=== PATIENT | male | born 1970 | race Caucasian/White ===

== ENCOUNTER 2022-11-01 07:29 | Outpatient (CLI) | payer OTHER, SELFPAY ==
--- NOTE | ~2022-11-01 | MR_ITS ---
EXAMINATION: MR elbow RT wo con DATE: 11/01/2022 08:25 INDICATION: Tear of right biceps muscle. Right elbow pain. TECHNIQUE: Magnetic resonance imaging (MRI) of the right elbow was performed without intravenous cont rast. COMPARISON: None FINDINGS: Osseous/other: Bone alignment is normal. No fracture. The elbow joint cartilage is normal. Tendons: Brachialis tendon is normal. There is tendinopathy and partial tear of distal biceps tendon with lian cent fluid. There is mild tendinopathy of the common flexor tendon. There is tendinopathy and partial tear of the common extensor tendon. Ligaments: Radial collateral ligament and lateral ulnar collateral ligament are normal. Ulnar collateral ligamen t is normal. Cubital tunnel: The ulnar nerve is normal. Fluid: There is no elbow joint effusion. IMPRESSION: 1. Partial tear of distal biceps tendon. 2. Partial tear of the common extensor tendon at lateral humeral epicondyle. Reviewed, dictated and finalized at location A.
== END 2022-11-01 07:30 ==
PROVIDERS: PCP Family Medicine Sports Medicine; Visit Provider Family Medicine Sports Medicine
DX: S46.211D Strain of muscle, fascia and tendon of other parts of biceps, right arm, subsequent encounter (principal); T14.90XD Injury, unspecified, subsequent encounter
CPT/HCPCS: 73221

== ENCOUNTER 2024-07-30 10:02 | Inpatient (IN) | payer OTHER, SELFPAY ==
[2024-07-30] VITALS (17 sets, daily range): BP systolic 104–169; BP diastolic 69–101; PULSE 68–108; RESP 15–24; TEMP 36.6–37.2; O2SAT 94–98; BMI 20.8
--- NOTE | ~2024-07-30 | CT_ITS ---
EXAMINATION: CT brain wo con DATE: 07/30/2024 12:06 INDICATION: Seizure TECHNIQUE: Computed tomography (CT) of the head was performed without intravenous contrast. Sagittal and coronal reconstructions were performed. The mA was adjusted according to patient size. Iterative reconstruction technique was employed. The dose-length product was 681.00 mGy-cm. COMPARISON: None FINDINGS: No acute intracranial hemorrhage, acute infarction or abnormal extra axial fluid collection. Ventricl es are normal and symmetric. No mass/mass effect. The orbits, paranasal sinuses and mastoid air cells are normal. IMPRESSION: 1. Normal head CT. Reviewed, dictated and finalized at location A. IMPRESSION: 1. Normal head CT.
--- NOTE | ~2024-07-30 | US_ITS ---
EXAMINATION: US abdomen limited DATE: 07/30/2024 12:23 INDICATION: Elevated liver enzymes. TECHNIQUE: Multiple grayscale and Doppler ultrasound images of the abdomen were obtained. COMPARISON: None FINDINGS: The region of the pancreas is obscured by gas in the stomach and bowels. Liver has normal contour, wi th a smooth surface. There is increased parenchymal echogenicity and coarsened echotexture consistent with diffuse hepatic steatosis. No liver lesion identified. No intrahepatic biliary duct dilation s uspected. Portal venous flow was seen in the hepatopetal, normal direction and has normal Doppler wav eform. The gallbladder is normal in appearance. There is no cholelithiasis. The common bile duct jayde sures 2-3 mm, which is normal. Sonographic Bright sign was reported as negative by the flight crew scheduler.Th e proximal inferior vena cava is normal. Visualized portion of the right kidney demonstrates normal c ontour and echogenicity with no hydronephrosis. IMPRESSION: 1. Diffuse hepatic steatosis. 2. Normal gallbladder and no intra or extra hepatic biliary ductal dilation. Reviewed, dictated and finalized at location A.
--- OUTSIDE RECORDS SUMMARY | 2024-07-30 10:05 | XMS_ITS | Encounter Summary ---
Author Organization [facility] Address [address] [place] [address] Care Team Providers Care General Doc Name Role Phone Chery Valenzuela MD Primary Care Provider [phone] Encounter Details Date Type Department Care Team (Late st Contact Info) Description 07/27/2023 MyChart Message Enc [facility] Family and [facility] Medicine - [place] [address] [place] [address] Chery Valenzuela MD [address] [place] [address] Blood work Social History Tobacco Use Types Packs/Day Years Used Date Smoking Tobacco: Former Cigarettes 1 24 0 09/16/1984 - 09/16/2008 Passive Smoke Exposure: Never Smokeless Tobacco: Current Chew Alcohol Use Standard Drinks/Week Comments Never 0 (1 standard drink = 0.6 oz pur e alcohol) AUDIT-C Answer Date Recorded Frequency of Alcohol Consumption Never 06/06/2019 Average Number of Drinks Not on file 020 Frequency of Binge Drinking Not on file 05/28 PHQ-2 Answer Date Recorded Patient Health Questionnaire-2 Score 3 11/06/2022 Sex and Gender Information Value Date Recorded Sex Assigned at Male 05/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 Sex Male 11:55 AM ASSISTANT CONSTRUCTION SUPERINTENDENT Gender Identity Male 05/24/2024 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 Sexual Orientation Not on file documented as of this encounter Plan of Treatment Upcoming Encounters Date Type Department Care Team (Late st Contact Info) Description 08/03/2024 8:20 AM CDT Office Visit [facility] - [place] [address] [place] [address] Chery Valenzuela MD [address] [address] documented as of this encounter Visit Diagnoses Not on filedocumented in this encounter Additional Health Concerns Assessment Noted Time PHQ-9 Depression Total Score: 5 11/07/19 23 8:53 AM CDT documented as of this encounter Care Teams General Doc Relationship Specialty Start Date End Date Chery Valenzuela MD [address] [address] PCP - General FAMILY PRACTICE 05/25/19 documented as of this encounter
--- OUTSIDE RECORDS SUMMARY | 2024-07-30 10:05 | XMS_ITS | Data Portability ---
Author Organization [facility] Address [address] [place] [address] Assessment No assessment recorded. Plan of Treatment Reminders Order Date Submit Date Provider Last Modified By Organization Details Last Modified Time Details Appointments None recorded . Lab TSH, serum, reflex free T4 2018 019 [facility], [address] [place] [address], [address], [place], [address], 9 16:37:52 BMP, serum or plasma 2018 019 [facility], [address] [facility], [address], [place], [address], 9 16:37:53 Referral None recorded . Procedures None recorded . Surgeries None recorded . Imaging CT, abdomen + pelvis, w/ contrast [address] ([facility]), [address] [place] [address], [address], 9 15:54:54 CT, abdomen + pelvis, w/wo contrast 2018 019 [place] [id number] Not available 9 16:38:27 Medication Orders clonazep am 0.5 mg tablet 2018 019 INTERFACE [facility], [address] [facility], [place], [address], 9 16:42:09 clonazep am 0.5 mg tablet 2018 019 INTERFACE [facility], [address] [place] [address], [address], 9 16:35:18 clonazep am 0.5 mg tablet 2018 019 INTERFACE [facility], [address] [place] [address], [address], 9 16:45:57 diclofen ac 1 % topical gel 2017 018 [email or web address] Not available 9 15:44:01 clonazep am 0.5 mg tablet 2017 018 [email or web address] [facility], [address] [place] [address], [address], 8 16:20:47 Patient TargetsNo targets recorded. Patient Instructions Encounter Date Encounter Id Patient Instructions Last Modified By Organization Details Last Modified Time 08/25/2018 [id number] learning about anxiety disorders [email or web address] Not available 08/25/2018 16:35:15 Reason for Referral None Reported. Problems Name Problem SNOMED Code Status Onset Date Resolution Date Notes Provider Name and Address Organization Details Recorded Time Pain in toe 878654854 Active 2016 Steve Junior MD Attn: Justyn almazan,[address] [facility], [place], [address], [facility] 7 16:23:16 Cough 51985539 Active 2016 Steve Junior MD Attn: Justyn almazan,[address] [facility], [place], [address], [facility] 7 16:23:32 Ex-tobacc o user 798859821 Active 2016 5-6 yrs ago Steve Junior MD Attn: Justyn almazan,[address] [facility], [place], [address], [facility] [place] [place] 7 16:24:00 Screening for malignant neoplasm of prostate Active 2016 Steve Junior MD Attn: Accountron almazan,[address] [facility], [place], [address], [place] [facility] 7 16:24:19 Adult health examinati on Active 2016 Steve Junior MD Attn: Accountin g,[address] [facility], [place], [address], [place] [facility] 7 16:25:10 Active immunizat ion Active 2017 Steve Junior MD Attn: Accountin g,[address] [facility], [place], [address], [place] [facility] 8 13:55:18 Anxiety disorder 530997215 Active 2017 Steve Junior MD Attn: Accountin g,[address] [facility], [place], [address], [place] [facility] 8 15:44:22 Medicatio n monitorin g Active 2017 Steve Junior MD Attn: Accountin g,[address] [facility], [place], [address], [place] [facility] 8 15:49:15 Pain of left shoulder joint 534558815094 [address] Active 2017 Jamar Tristan PA-C Attn: Accountin g,[address] [facility], [place], [address], [place] [facility] 8 16:16:21 Low back pain 409150407 Active 2018 Radiates to left testicle Steve Junior MD Attn: Accountin g,[address] [facility], [place], [address], [place] [facility] 9 16:32:48 Left lower quadrant pain 208400177 Active 2018 Steve Junior MD Attn: Accountin g,[address] [facility], [place], [address], [place] [facility] 9 16:31:10 Abnormal weight loss 783350681 Active 2018 Steve Junior MD Attn: Justyn almazan,[address] [facility], [place], [address], [facility] [place] 9 16:32:16 Altered bowel function 68370541 Active 2018 Steve Junior MD Attn: Justyn almazan,[address] , [place], [address], [facility], [place] 9 16:32:50 Problem Notes None recorded. Medical Equipment None Reported. Allergies No known drug allergies Medications Name Sig Start Date Stop Date Status Note LastModified by Organization Details LastModified Time cetirizine 10 mg tablet Take 1 tablet every day by oral route. 03/05 completed Not Available Not Available Not Available clonazepam 0.5 mg tablet active Not Available Not Available Not Available ibuprofen 200 mg tablet Take 1 tablet every 6 hours by oral route as needed. 08/25 completed Not Available Not Available Not Available diclofenac 1 % topical gel APPLY 2 GRAM TO THE AFFECTED AREA(S) BY TOPICAL ROUTE 4 TIMES PER DAY 08/25 completed Not Available Not Available Not Available Vitals Date Recorded Body height Body mass index (BMI) Body weight Oxygen saturation Oxygen saturation in Arterial blood by Pulse oximetry Heart rate Body temperature Systolic blood pressure Diastolic blood pressure Provider Name and Address Organization Details Last Updated DateTime 8 177.8 cm 23.9 kg/m2 93482.2 1 g 97 % 97 % 77 /min 98.3 [degF] 140 mm[Hg] 78 mm[Hg] Yadira Rolle MA [facility] 8 16:04:46 Date Recorded Body height Body mass index (BMI) Body weight Body temperature Oxygen saturation Oxygen saturation in Arterial blood by Pulse oximetry Heart rate Systolic blood pressure Diastolic blood pressure Provider Name and Address Organization Details Last Updated DateTime 9 177.8 cm 23.4 kg/m2 53157.5 6 g 97.8 [degF] 98 % 98 % 76 /min 138 mm[Hg] 80 mm[Hg] Aurora Knowles MA [facility] 9 16:29:16 Date Recorded Body height Body mass index (BMI) Body weight Body temperature Oxygen saturation Oxygen saturation in Arterial blood by Pulse oximetry Heart rate Systolic blood pressure Diastolic blood pressure Provider Name and Address Organization Details Last Updated DateTime 9 177.8 cm 24.2 kg/m2 04021.3 9 g 98.3 [degF] 95 % 95 % 58 /min 122 mm[Hg] 80 mm[Hg] Shaina Davis [place] [facility] 9 15:52:09 Date Recorded Body height Body mass index (BMI) Body weight Body temperature Oxygen saturation Oxygen saturation in Arterial blood by Pulse oximetry Heart rate Systolic blood pressure Diastolic blood pressure Provider Name and Address Organization Details Last Updated DateTime 9 177.8 cm 22.2 kg/m2 92898.1 g 98.3 [degF] 98 % 98 % 47 /min 134 mm[Hg] 76 mm[Hg] Chano Holt [place] [facility] 9 15:20:12 Date Recorded Body height Body mass index (BMI) Body weight Body temperature Oxygen saturation Oxygen saturation in Arterial blood by Pulse oximetry Heart rate Systolic blood pressure Diastolic blood pressure Provider Name and Address Organization Details Last Updated DateTime 9 177.8 cm 22.8 kg/m2 99130.1 9 g 98.1 [degF] 98 % 98 % 73 /min 118 mm[Hg] 84 mm[Hg] Aurora Knowles [place] [facility] 9 15:27:26 Social History Question Answer Notes LastModified by Organization D etails LastModified Time How Many Years Have You Smoked Tobacco? 5 [email or web address] Information not available 06/15/2017 Sex: Unknown Functional Status None recorded. Mental Status None recorded. Family History Relationship Description Onset Age of this Age Resolved Age Notes LastModified by Organization Details LastModified Time Mother Congestive heart failure [email or web address] Not available 2016 15:47:59 Mother Alcohol abuse [email or web address] Not available 2016 15:55:31 Mother Asthma [email or web address] Not available 1 06/15/2016 15:55:41 Mother Depressive disorder [email or web address] Not available 2016 15:55:59 Mother Hypertensive disorder [email or web address] Not available 2016 15:56:24 Mother Myocardial infarction [email or web address] Not available 04/14 15:56:41 Mother Heart disease [email or web address] Not available 2016 15:56:57 Mother Migraine [email or web address] Not available 04/14/2017 15:57:12 Mother Osteoporosis [email or web address] Not avail able 04/14/2017 15:57:36 Sister Alcohol abuse [email or web address] Not available 2016 15:55:31 Sister Depressive disorder [email or web address] Not available 2016 15:55:59 Sister Hypertensive disorder [email or web address] Not available 2016 15:56:24 Brother Hypertensive disorder [email or web address] Not available 2016 15:56:24 Medical History Condition Response Anxiety Disorder Y Muscle, Joint, or Bone Problems Y High Blood Pressure Y Acid Reflux (GERD) Y Headaches Y Depression Y GI Problems Y Immunizations Vaccine Type Date Status Note Provider Nam e and Address Organization Details Recorded Time Tdap 05/07/2017 completed Not Available [facility] 05/14/2019 02:48:31 Past Encounters Encounter ID Performer Location Encounter Start Date Encounter Closed Date Diagnosis/Indication Diagnosis SNOMED-CT Code Diagnosis ICD10 Code Diagnosis Note [id number] MD Greg Hagen (Adult Med) [address] [place] [address] 04/14/2017 14:56:27 04/14/2017 16:32:51 Screening for malignant neoplasm of prostate 258490194 Z12.5 Adult heal th examination 869283371 Z00.00 Cough 55792942 R05 [id number] MD Greg Hagen (Adult Med) [address] [place] [address] 05/07/2017 11:55:29 05/07/2017 15:21:36 Adult health examination 607956405 Z00.00 Active immunization 3387 9002 Z23 [id number] MD Greg Hagen (Adult Med) [address] [place] [address] 06/15/2017 14:40:14 06/15/2017 15:55:20 Anxiety disorder 330760096 F41.9 Medication monitoring 39 9236476 Z51.81 Cough 81558203 R05 post nasal drip [id number] MD Greg Hagen (Adult Med) [address] [place] [address] 0 10/19/2017 15:52:55 10/20/2017 12:11:00 Anxiety disorder 522588289 F41.9 Ex-tobacco user 24563389 9 Z87.539 [id number] IMTIAZ Pickens (Adult Med) [address] [place] [address] 0 03/05/2018 15:39:43 03/05/2018 16:26:01 Pain of left shoulder joint 4060698482 4256385 M25.512 Anxiety disorder F41.9 [id number] MD Greg Hagen (Adult Med) [address] [place] [address] 0 05/04/2018 15:42:47 05/05/2018 10:01:45 Pain of left shoulder joint 2031342871 1577810 M25.512 Anxiety disorder F41.9 Ex-tobacco user 23013106 9 Z87.510 [id number] MD Greg Hagen (Adult Med) [address] [place] [address] 0 08/25/2018 15:12:48 08/26/2018 10:18:47 Anxiety disorder 550342808 F41.9 [id number] MD Greg Hagen (Adult Med) [address] [place] [address] 0 10/25/2018 14:53:28 10/26/2018 10:12:56 Left lower quadrant pain 864925490 R10.32 Abnormal weight loss 267 787274 R63.4 Altered rosio wel function 95245813 R19.4 Anxiety disorder F41.9 [id number] MD Greg Hagen (Adult Med) [address] [place] [address] 0 12/30/2018 14:46:45 12/31/2018 12:56:56 Abnormal weight loss 205146347 R63.4 Left lower quadrant pain 155941719 R10.32 Health Concerns Section Related Observation LastModified by Organization Detai ls LastModified Time None Recorded Concern Status LastModified by Organization Details LastModified Time None Recorded Advance Directives Directive None Recorded Payers Encounter Date Sequence Insurance Name Policy Number Policy Espinosa Covered Member ID Espinosa Member ID Guarantor Name 03/05/2018 1 *SELF PAY* Ma tthew Blanke 08/25/2018 1 *SELF PAY* Ma tthew Blanke 10/25/2018 1 *SELF PAY* Ma tthew Blanke 12/30/2018 1 *SELF PAY* Ma tthew Blanke Notes Date Note Type Note Provider Name and Address Organization Details Recorded Time 03/05/2018 text/html left shoulder pain , stiffness , no better Jamar Tristan PA-C Attn: [facility],[address] [facility], [place], [address], [facility] 03/07/2018 15:15:39 05/04/2018 text/html Needs clearance to enter [employer]. No new complaints. Steve Junior MD Attn: [facility],[address] [place], [address], [facility] 05/04/2018 16:46:01 08/25/2018 text/html Occasional pain lower back with radiation to left testicle. Pain usually lasts three days. Had seen psysical theraist Steve Junior MD Attn: [facility],[address] [facility], [place], [address], [facility] 08/25/2018 16:36:41 10/25/2018 text/html LLQ abdominal pain x 6 months but worse in the past six weeks. No obvious triggers. Intense pain is primarily at night and lasts a couple hours. Pain apparently present about 30 mins poat dinner. Has episodes of nausea at least weekly but no emesis. last episode one week ago. No obvious preeceding contributions. Has Has been off ibuprofen for at least four months. Appetite poor since last visit. Steve Junior MD Attn: [facility],[address] [place], [address], [facility] 10/25/2018 16:42:33 12/30/2018 text/html Was unable to ge t CT done. Will schedule again. Steve Junior MD Attn: [facility],[address] [place], [address], [facility] 12/30/2018 15:56:44
--- OUTSIDE RECORDS SUMMARY | 2024-07-30 10:05 | XMS_ITS | Continuity of Care Document ---
Author Organization [facility] [facility] Address [address] [place] [address] [address] [place] [address] Phone Care Team Providers Care Supervisor Cell Operation Name Role Phone Agapito Bennett Unavailable Unavailable Procedures Procedure Date Therapeutic Activities Therapeutic Exercise Manual Therapy Neuromuscular Re-Ed Therapeutic Activities Neuromuscular Re-Ed Manual Therapy Therapeutic Exercise Therapeutic Activities Neuromuscular Re-Ed Therapeutic Exercise Manual Therapy Neuromuscular Re-Ed Therapeutic Exercise Therapeutic Activities Manual Therapy Therapeutic Activities Neuromuscular Re-Ed Therapeutic Exercise Manual Therapy Therapeutic Activities Neuromuscular Re-Ed Manual Therapy Therapeutic Exercise Neuromuscular Re-Ed Therapeutic Activities Therapeutic Exercise Manual Therapy Therapeutic Activities Neuromuscular Re-Ed Therapeutic Exercise Manual Therapy Neuromuscular Re-Ed PT Evaluation Moderate Complexity Manual Therapy Therapeutic Exercise Advance Directives Directive Yes / No Effective Date File Name No Information Encounters Encounter Description Practice Location Reason(s) For Visit Diagnoses Date Provider Providers Copied on Encounter [facility] [address] [place] [address], [id number], tel:[phone] [place] No Information Dec-0 7-202 0 Muehl Agapito. [address] [facility], [address], [place], [facility], . tel: [phone] [address], [id number], tel:[phone] [place] No Information 3 0-202 0 Muehl Agapito. [address] [place] [address], [facility], [place], [place], [facility], . tel: [phone] Referring Provider: [place], [address]. tel: [address], [id number], tel:[phone] [place] No Information 3-202 0 Muehl Agapito. [address] [place] [address], [address], [place], [place], [facility], . tel: [phone] Referring Provider: Radha Dinero, [place], [address]. tel: [address], [id number], tel:[phone] [place] No Information 2 0-202 0 Muehl Agapito. [address] [facility], [address], [place], [facility], . tel: [phone] Referring Provider: Radha Dinero, [place], [address]. tel: [address], [id number], tel:[phone] [place] No Information Nov-1 1-202 0 Muehl Agapito. [address] [place] [address], [address], [place], [address], [place]. tel: [phone] Referring Provider: [place], [address]. tel:[phone], [id number], [place] tel:[phone] [place] No Information 0 9-202 0 Muehl Agapito. [address] [place] [address], [address], [place], [address], [place]. tel: [phone] Referring Provider: [place], [address]. tel:[phone], [id number], [place] tel:[phone] [place] No Information 0 4-202 0 Muehl Agapito. [address] [place] [address], [address], [place], [address], [place]. tel: [phone] Referring Provider: Radha Dinero, [place], [address]. tel:[phone], [id number], [place] tel:[phone] [place] No Information 8-202 0 Muehl Agapito. [address] [place] [address], [address], [place], [address], [place]. tel: [phone] Referring Provider: [place], [address]. tel: [address], [place], [place], [id number], [place] tel:[phone] [place] No Information 2 6-202 0 Muehl Agapito. [address] [place] [address], [address], [place], [address], . tel:[phone] Referring Provider: Chery Valenzuela, [place], [address]. tel:[phone] [facility] [place], [address], [id number], [place] tel:[phone] [place] No Information 0 Buck Altman. [address] [facility], [facility] [address], [address], . tel:[phone] Referring Provider: Radha Dinero, [place], [address]. tel:[phone] Family History Family Member Type Diagnosis Age At Onset No Information Payers Payer name Insurance type Covered republican ID Eboni schmidt(s) Deseantna [id number] Social History Type Description Quantity Date Captured Comments Sex Male Smoking Status No Information Chief Complaint And Reason For Visit No Information Reason For Referral Reason For Referral No Information History Of Present Illness Encounter Date Complaint History Of Prese nt Illness No Information Functional Status Date Functional Assessmen t No Information Instructions Date Instruction Additional Infor mation No Information Assessments Type Assessment Date No Information Patient Care Teams Name Effective Dates (start - stop) Status Members No Information
--- OUTSIDE RECORDS SUMMARY | 2024-07-30 10:05 | XMS_ITS | Clinical Summary ---
Author Organization [facility] Address [facility] [place] [address] Care Team Providers Care Blind Aide Name Role Phone Chery Valenzuela MD Primary Care Provider [phone] Allergies Active Allergy Reactions Criticality Noted Date Comments Erythromycin GI Upset 05/19/2020 Medications Micheline, Zingiber officinalis, (MICHELINE ROOT OR) 01/26/20 18 Active Cholecalciferol 100 MCG (4000 UT) Cap 12/27/19 15 Active fish oil 1000 MG Cap capsule 12/27/19 15 Active mirtazapine (REMERON) 30 MG tabletIndications :Primary insomnia Take 1 tablet (30 mg total) by mouth nightly at bedtime. 90 tablet 3 10/22/19 24 Active escitalopram (LEXAPRO) 20 MG tabletIndications :Mixed anxiety depressive disorder Take 1 tablet (20 mg total) by mouth daily. 90 tablet 3 10/22/19 24 Active busPIRone (BUSPAR) 10 MG tabletIndications :Anxiety Take 1 tablet (10 mg total) by mouth 2 (two) times daily. 180 tablet 3 10/22/19 24 Active testosterone cypionate (DEPO TESTOSTERONE) 200 MG/ML injectionIndicati ons:Testosterone deficiency Inject 1 mL (200 mg total) into the muscle every 14 (fourteen) days. For 14 Days 6 mL 3 04/25/20 24 025 Active clonazePAM (KLONOPIN) 1 MG tabletIndications :Anxiety Take 1 tablet (1 mg total) by mouth 3 (three) times daily as needed for Anxiety. 90 tablet 07/09/19 25 Active lisdexamfetamine (VYVANSE) 20 MG capsuleIndication s:Attention or concentration deficit Take 1 capsule (20 mg total) by mouth every morning. 30 capsule 07/12/19 25 Active traZODone (DESYREL) 100 MG tabletIndications :Primary insomnia TAKE 1-2 TABLETS (100-200 MG TOTAL) BY MOUTH NIGHTLY AT BEDTIME. 180 tablet 1 07/14/19 25 026 Active lisdexamfetamine (VYVANSE) 40 MG capsuleIndication s:Attention deficit hyperactivity disorder (ADHD), predominantly inattentive type Take 1 capsule (40 mg total) by mouth every morning. 30 capsule 07/27/19 25 Active traZODone (DESYREL) 100 MG tabletIndications :Primary insomnia Take 1-2 tablets (100-200 mg total) by mouth nightly at bedtime. 180 tablet 1 01/20/20 24 025 Discontinued clonazePAM (KLONOPIN) 1 MG tabletIndications :Anxiety Take 1 tablet (1 mg total) by mouth 3 (three) times daily as needed for Anxiety. 90 tablet 06/09/19 25 025 Discontinued(Re order) lisdexamfetamine (VYVANSE) 20 MG capsuleIndication s:Attention or concentration deficit Take 1 capsule (20 mg total) by mouth every morning. 30 capsule 07/12/19 25 025 Discontinued(Re order) lisdexamfetamine (VYVANSE) 20 MG capsuleIndication s:Attention or concentration deficit Take 1 capsule (20 mg total) by mouth every morning. 30 capsule 07/12/19 25 025 Discontinued Active Problems Problem Noted Date Diagnosed Date Traumatic partial tear of right biceps tendon Primary insomnia 12/07/2020 ADD (attention deficit disorder) 08/23/2019 Hypothyroidism 08/23/2019 PTSD (post-traumatic stress disorder) 08/23/2019 Pain of both elbows 06/06/2019 Resolved Problems Problem Noted Date Diagnosed Date Resolved Date Injury of left elbow 12/22/2019 023 Forearm pain 12/22/2019 10/29/2022 Anxiety 08/23/2019 10/22/2023 Depression 08/23/2019 10/29/2022 Annual physical exam 06/06/2019 021 Left lower quadrant abdominal pain 06/06/2019 05/05/2022 Recurrent major depressive d isorder, in remission 06/06/2019 10/22/2023 Encounters Date Type Department Care Team Description 07/13/[address] [facility] [address] [place] [phone] Chery Valenzuela MD Refill Request 07/13/[address] [facility] [address] [place] [phone] Chery Valenzuela MD Request for Lisdexamfetamine Increase 07/11/2024 8:00 AM CDT Office Visit [facility] [address] [place] [phone] Chery Valenzuela MD Follow Up 07/11/[address] [facility] [address] [place] [phone] Chery Valenzuela MD Medication 07/11/2024 Travel 06/13/2024 8:00 AM MAIL PROCESSING EQUIPMENT MECHANIC Office Visit [facility] [address] [place] [phone] Chery Valenzuela MD Follow Up (Laceration to left wrist on 06/03. Sutures placed at [facility]. One spot is still draining. ) 06/13/2024 Travel 06/03/2024 12:29 PM MAIL PROCESSING EQUIPMENT MECHANIC - 06/03/2024 2:22 PM MAIL PROCESSING EQUIPMENT MECHANIC Emergency [facility] [place] [address] Krishna Mendoza MD Laceration Discharge Disposition: Home or Self Care (Routine Discharge) 06/03/2024 Travel 05/24/2024 8:00 AM MAIL PROCESSING EQUIPMENT MECHANIC Office Visit [facility] [address] [place] [address] Chery Valenzuela MD Physical (Annual physical) 05/24/2024 Travel from Last 3 Months Immunizations Name Administration Dates Next Due MODERNA COVID-19 (12+) MRNA, LNP-S, PF, 100 MCG/ 0.5 ML DOSE 02/19/2021,01/22/2021 Tdap (Generic) 05/07/2017 Family History Medical History Relation Comments Depression Brother Hypertension Brother Mental Health Brother Arthritis Father COPD Father Depression Father Heart Disease Father Mental Health Father Depression Maternal Aunt Mental Health Maternal Aunt Arthritis Maternal Grandmother Cancer Maternal Grandmother Mental Health Maternal Grandmother Alcohol Abuse Mother Arthritis Mother Asthma Mother COPD Mother Depression Mother Diabetes Mother Drug Abuse Mother Heart Disease Mother Hypertension Mother Mental Health Mother Miscarriages / Stillbirths Mother Depression Paternal Grandfather Early Hearing Loss Paternal Grandfather Mental Health Paternal Grandfather Arthritis Sister Depression Sister Diabetes Sister Mental Health Sister Early Son 1 Mental Health Son 1 Mental Health Son 2 Relation Status Comments Brother Father Maternal Aunt Maternal Grandmother Mother Paternal Grandfather Sister Son 1 Son 2 Social History Tobacco Use Types Packs/Day Years Used Date Smoking Tobacco: Former Cigarettes 1 24 0 09/16/1984 - 09/16/2008 Passive Smoke Exposure: Never Smokeless Tobacco: Current Chew Tobacco Cessation:Ready to Q uit: No; Counseling Given: Yes Alcohol Use Standard Drinks/Week Comments Never 0 (1 standard drink = 0.6 oz pur e alcohol) AUDIT-C Answer Date Recorded Frequency of Alcohol Consumption Never 06/06/2019 Average Number of Drinks Not on file 020 Frequency of Binge Drinking Not on file 05/28 PHQ-2 Answer Date Recorded Patient Health Questionnaire-2 Score 0 05/24/2024 Sex and Gender Information Value Date Recorded Sex Assigned at Male 05/24/2024 8:12 AM MAIL PROCESSING EQUIPMENT MECHANIC Legal Sex Male 11:55 AM MAIL PROCESSING EQUIPMENT MECHANIC Gender Identity Male 05/24/2024 8:12 AM MAIL PROCESSING EQUIPMENT MECHANIC Sexual Orientation Not on file Last Filed Vital Signs Vital Sign Reading Time Taken Comments Blood Pressure 134/80 07/11/2024 8:16 AM CDT Pulse 76 07/11/2024 8:16 AM CDT Temperature 36.7 C (98.1 F) 07/11/2024 8:16 AM CDT Respiratory Rate 16 07/11/2024 8:16 AM CDT Oxygen Saturation 100% 07/11/2024 8:16 AM CDT Inhaled Oxygen Concentration - - Weight 73 kg (161 lb) 07/11/2024 8:16 AM CDT Height 177.8 cm (5' 10 ) 07/11/2024 8:16 AM CDT Body Mass Index 23.1 07/11/2024 8:16 AM CDT Plan of Treatment Upcoming Encounters Date Type Department Care Team (Late st Contact Info) Description 08/03/2024 8:20 AM CDT Office Visit [facility] - [place] [address] [place] [address] Chery Valenzuela MD [address] [place] [address] Health Maintenance Due Date Last Done Comments Hepatitis B Vaccines (1 of 3 - 19+ 3-dose series) 1990 Annual Physical 05/24/2025 05/24/2024, 07/0 08/2022, 10/22/2021, Additional history exists COVID-19 Vaccine ( - 2023- season) 2025 02/19/2021, 01/22/2021 Postponed from 12/27/2023 (Patient Refused) Zoster Vaccines (1 of 2) 05/24/2025 Pos tponed from 2021 (Going to Outside Clinic) DTaP, Tdap and Td Vaccines (2 - Td or Tdap) 05/07/2027 05/07/2017 Colorectal Cancer Screening Colonoscopy (10 Years) 08/31/2029 09/01/2019 Hepatitis C Completed 05/26/2023 PHQ-2 (Physician [place]) Completed 05/24/2024 Meningococcal B Vaccine Aged Out No l onger eligible based on patient's age to complete this topic Meningococcal Vaccine Aged Out No juan josé arline eligible based on patient's age to complete this topic Pneumococcal Vaccine: Pediatrics (0 to 5 Years) and At-Risk Patients (6 to 64 Years) Aged Out No longer eligible based on patient's age to complete this topic RSV Immunizations Under 20 Months Aged Out No longer eligible based on patient's age to complete this topic Procedures Procedure Name Priority Date/Time Associated Diagnosis Comments SUTURE REMOVAL Routine 06/13/2024 8:00 AM MAIL PROCESSING EQUIPMENT MECHANIC Suture check Laceration of left wrist, subsequent encounter LACERATION REPAIR Routine 06/03/2024 2:0 4 PM MAIL PROCESSING EQUIPMENT MECHANIC HEPATITIS C ANTIBODY Routine 05/26/2023 9:54 AM MAIL PROCESSING EQUIPMENT MECHANIC Traumatic partial tear of right biceps tendon, subsequent encounter from Last 3 Months or Most Recently Relevant to Health Maintenance Results * SUTURE REMOVAL (06/13/2024 8:00 AM MAIL PROCESSING EQUIPMENT MECHANIC) Narrative Chery Valenzuela MD - 06/13/2024 8:00 AM MAIL PROCESSING EQUIPMENT MECHANIC Chery Valenzuela MD 06/13/2024 11:05 AM Suture Removal Date/Time: 06/13/2024 8:00 AM Performed by: Chery Valenzuela MD Authorized by: Chery Valenzuela MD Body area: upper extremity Location details: left wrist Wound Appearance: clean Sutures Removed: 10 Post-removal: Steri-Strips applied Patient tolerance: patient tolerated the procedure well with no immediate complications us Chery Valenzuela MD PROCEDURE/MINOR SURGICAL ORDER ISAAC Final Result * Lac Repair (06/03/2024 2:04 PM MAIL PROCESSING EQUIPMENT MECHANIC) Narrative Krishna Mendoza MD - 06/03/2024 2:04 PM MAIL PROCESSING EQUIPMENT MECHANIC IVIS Rouse 06/03/2024 2:06 PM Lac Repair Date/Time: 06/03/2024 2:04 PM Performed by: IVIS Rouse Authorized by: Krishna Mendoza MD Consent: Consent obtained: Verbal Consent given by: Patient Risks discussed: Infection and pain Anesthesia: Anesthesia method: Local infiltration Local anesthetic: Lidocaine 1% w/o epi Laceration details: Location: Shoulder/arm Shoulder/arm location: L lower arm Length (cm): 6 Exploration: Wound extent: no tendon damage noted, no underlying fracture noted and no vascular damage noted Treatment: Area cleansed with: [place] Amount of cleaning: Standard Skin repair: Repair method: Sutures Suture size: 4-0 Suture material: Nylon Suture technique: Simple interrupted Number of sutures: 10 Approximation: Approximation: Close Repair type: Repair type: Simple Post-procedure details: Dressing: Adhesive bandage Procedure completion: Tolerated us Krishna Mendoza MD PROCEDURE/MINOR SURGICAL ORDER ISAAC Final Result * HEPATITIS C ANTIBODY (05/26/2023 9:54 AM MAIL PROCESSING EQUIPMENT MECHANIC) HEPATITIS C AB NON-REACTI VE NON-REACT LEAH 05/26/2023 6:54 PM MAIL PROCESSING EQUIPMENT MECHANIC [facility] Comment: ANTIBODIES TO HCV NOT DETECTED. DOES NOT EXCLUDE THE POSSIBILITY OF EXPOSURE TO HCV. 05/26/2023 9:54 AM MAIL PROCESSING EQUIPMENT MECHANIC Chery Valenzuela MD LABORATORY Final Result [facility] [address] [place] [address], [id number] from Last 3 Months or Most Recently Relevant to Health Maintenance Insurance [employer] Care Teams Blind Aide Relationship Specialty Start Date End Date Chery Valenzuela MD [address] [place] [address] [phone] PCP - General FAMILY PRACTICE 05/25/19
--- OUTSIDE RECORDS SUMMARY | 2024-07-30 10:06 | XMS_ITS | Encounter Summary ---
Author Organization [facility] Address [address] [place] [address] Care Team Providers Care Flake Drier Name Role Phone Chery Valenzuela MD Primary Care Provider + Encounter Details Date Type Department Care Team (Late st Contact Info) Description 09/06/2019 MyChart Message Enc [facility] Family and Sports Medicine - [place] [address] [place] [address] Chery Valenzuela MD [address] [place] [address] Follow Up/Update Social History Tobacco Use Types Packs/Day Years Used Date Smoking Tobacco: Former Smokeless Tobacco: Current Chew Alcohol Use Standard Drinks/Week Comments Never 0 (1 standard drink = 0.6 oz pur e alcohol) AUDIT-C Answer Date Recorded Frequency of Alcohol Consumption Never 06/06/2019 Average Number of Drinks Not on file 020 Frequency of Binge Drinking Not on file 05/28 Sex and Gender Information Value Date Recorded Sex Assigned at Male 05/24/2024 8:12 AM BACK TENDER CLOTH PRINTING Legal Sex Male 11:55 AM BACK TENDER CLOTH PRINTING Gender Identity Male 05/24/2024 8:12 AM BACK TENDER [employer]OTH PRINTING Sexual Orientation Not on file COVID-19 Exposure Response Date Recorded In the last month, have you been in contact with someone who was confirmed or suspected to have Coronavirus / COVID-19? No / Unsure 08/31/2019 1:31 PM CDT documented as of this encounter Plan of Treatment Upcoming Encounters Date Type Department Care Team (Late st Contact Info) Description 08/03/2024 8:20 AM CDT Office Visit [facility] Family and Sports Medicine - [place] [address] [place] [address] Chery Valenzuela MD [address] [address] documented as of this encounter Visit Diagnoses Not on filedocumented in this encounter Care Teams Flake Drier Relationship Specialty Start Date End Date Chery Valenzuela MD [address] [address] PCP - General FAMILY PRACTICE 05/25/19 documented as of this encounter
--- NOTE | 2024-07-30 10:16 | ECG_ITS ---
Test Date: 2024-07-30 10:45:19 Measurements Intervals [place] Rate: 98 P: 66 MD: 120 QRS: 63 QRSD: 110 T: 47 QT: 371 QTc: 475 Interpretive Statements SINUS RHYTHM POSSIBLE LEFT ATRIAL ENLARGEMENT CANNOT R/O SEPTAL INFARCT, AGE INDETERMINATE ABNORMAL ECG No previous ECG available for comparison Electronically Signed On 07-30-2024 14:47:17 CDT by Viktor Hirsch D.O.
[2024-07-30] MEDS: LORazepam INJ (*CRX) 2 MG/ML VIAL IV PUSH ×2 (10:25→20:32)
--- OUTSIDE RECORDS SUMMARY | 2024-07-30 10:33 | XMS_ITS | Continuity of Care Document ---
Author Organization [facility] Address [address] [place] [address] [address] [place] [address] Phone Care Team Providers Care Aircraft Systems Technician Name Role Phone Agapito Bennett Unavailable Unavailable Procedures Procedure Date Therapeutic Activities Neuromuscular Re-Ed Manual Therapy Therapeutic Exercise Therapeutic Activities Neuromuscular Re-Ed Manual Therapy Therapeutic Exercise Therapeutic Activities Therapeutic Exercise Neuromuscular Re-Ed Manual Therapy Therapeutic Activities Neuromuscular Re-Ed Therapeutic Exercise Manual Therapy Therapeutic Exercise Neuromuscular Re-Ed Therapeutic Activities Manual Therapy Therapeutic Activities Neuromuscular Re-Ed Manual Therapy Therapeutic Exercise Neuromuscular Re-Ed Therapeutic Activities Manual Therapy Therapeutic Exercise Therapeutic Activities Neuromuscular Re-Ed Therapeutic Exercise Manual Therapy PT Evaluation Moderate Complexity Neuromuscular Re-Ed Manual Therapy Therapeutic Exercise Advance Directives Directive Yes / No Effective Date File Name No Information Encounters Encounter Description Practice Location Reason(s) For Visit Diagnoses Date Provider Providers Copied on Encounter [facility] [address] [place] [address], [id number], tel:[phone] [place] No Information Dec-0 7-202 [address] [address] [facility], [address], [place], [facility] [place][note 2], . tel: [phone] [address], [id number], tel:[phone] [place] No Information 3 0-202 0 Muehl Agapito. [address] [place] [address], [facility], [place], [place], [facility] [place][note 2], . tel: [phone] Referring Provider: [place], [address]. tel: [address], [id number], tel:[phone] [place] No Information 3-202 0 Muehl Agapito. [address] [place] [address], [address], [place], [place], [facility] [place][note 2], . tel: [phone] Referring Provider: Radha Dinero, [place], [address]. tel: [address], [id number], tel:[phone] [place] No Information 2 0-[address] [address] [facility], [address], [place], [facility] [place][note 2], . tel: [phone] Referring Provider: Radha Dinero, [place], [address]. tel: [address], [id number], tel:[phone] [place] No Information Nov-1 1-202 0 Muehl Agapito. [address] [place] [address], [address], [place], [address], [place]. tel: [phone] Referring Provider: [place], [address]. tel:[phone], [id number], [place] tel:[phone] [place] No Information 0 9-202 0 Muehl Agapito. [address] [place] [address], [address], [place], [address], [place]. tel: [phone] Referring Provider: [place], [address]. tel:[phone], [id number], [place] tel:[phone] [place] No Information 0 4-202 0 Muehl Agapito. [address] [place] [address], [address], [place], [address], [place]. tel: [phone] Referring Provider: Radha Dinero, [place], [address]. tel:[phone], [id number], [place] tel:[phone] [place] No Information 8-202 0 Muehl Agapito. [address] [place] [address], [address], [place], [address], [place]. tel: [phone] Referring Provider: [place], [address]. tel: [address], [place], [place], [id number], [place] tel:[phone] [place] No Information 2 6-202 0 Muehl Agapito. [address] [place] [address], [address], [place], [address], . tel:[phone] Referring Provider: Chery Valenzuela, [place], [address]. tel:[phone] [facility] [place], [address], [id number], [place] tel:[phone] [place] No Information [address] [address] [facility], [facility] [address], [place], [address], . tel:[phone] Referring Provider: Radha Dinero, [place], [address]. tel:[phone] Family History Family Member Type Diagnosis Age At Onset No Information Payers Payer name Insurance type Covered constitution party ID Eboni schmidt(s) Dese[place]na [id number] Social History Type Description Quantity Date Captured [...]
[2024-07-30] MEDS: PANTOPRAZOLE SODIUM IV 40 MG VIAL IV PUSH ×2 (10:35→20:26)
[2024-07-30] MEDS: SODIUM CHLORIDE 0.9% IV 1,000 ML 999 ML IV CONT (10:40)
--- NOTE | 2024-07-30 10:40 | PC.NURSE ---
Seizure pads applied to bed rails.
--- NOTE | 2024-07-30 10:40 | PC.NURSE ---
Pt. had a witnessed seizure, lasting for appriximately 1 minute. This RN and Donna RN at bedside. Pt. immediately turned to right side, mouth suctioned, 2L NC applied and Donna RN called out for additional help while this RN held pt. to R. side. Once additional help arrived, IV access obtained. See MAR for pharmacological intervention. Pt. bit the L. side of his tongue. Minor bleeding. Pt. showing no signs of aspiration. Pt. is now awake, does not remember event but is A&Ox3.
[2024-07-30] MEDS: ONDANSETRON INJ 4 MG/2 ML VIAL IV PUSH (10:45)
[2024-07-30 10:55] LABS: Basophils Absolute Auto 0.1 K/mm3 (0.0-0.1); Basophils Percent Auto 0.3 % (0.2-1.2); Eosinophils Percent Auto 0.1 % (0-4.4); Hemoglobin 18.4 g/dL (14.0-18.0); Immature Granulocyte Absolute 0.16 K/mm3 (0.00-0.031); Immature Granulocyte Percent A 0.7 % (0-0.5); Lymphocytes Absolute Auto 3.18 K/mm3 (0.9-3.2); Lymphocytes Percent Auto 13.3 % (18.3-44.2); Mean Corpuscular HGB Conc 34.1 g/dl (32-36); Mean Corpuscular Hemoglobin 33.4 pg (26-34); Mean Platelet Volume 10.4 fl (7.4-10.4); Monocytes Absolute Auto 1.4 K/mm3 (0.1-0.6); Monocytes Percent Auto 5.7 % (2.6-8.5); Neutrophils Absolute Auto 19.1 K/mm3 (1.3-6.7); Neutrophils Percent Auto 79.9 % (45.5-73.1); Platelet Count Result 266 k/mm3 (150-375); Red Blood Count 5.51 M/mm3 (4.6-6.20); Red Cell Distribution Width 13.6 % (11.5-14.5); White Blood Count 23.8 K/mm3 (4.5-10.0)
--- NOTE | 2024-07-30 11:00 | PC.NURSE ---
Pt. visitor in , Aunleonardo Al. Pt. states that he would not like his visitor to be given information and would only like for her to be told that he is ok. Pt. updated with this information. Aunt Servando left and can he reached at [phone].
[2024-07-30 11:05] LABS: INR 1.2; Prothrombin Time 15.8 Seconds (11.1-14.7)
[2024-07-30 11:18] LABS: Ethanol < 10 mg/dL (<10)
[2024-07-30 11:22] LABS: Albumin Level 5.7 g/dL (3.5-5.1); Alkaline Phosphatase 68 U/L (38-126); Aspartate Amino Transferase 68 U/L (17-59); Bilirubin,Total 1.4 mg/dL (0.2-1.3); Blood Urea Nitrogen 9 mg/dL (9-20); Calcium 9.9 mg/dL (8.4-10.2); Carbon Dioxide < 5 mmol/L (22-30); Chloride 100 mmol/L (98-107); Estimated Glomerular Filt Rate > 60; Glucose 160 mg/dL (65-110); Potassium 3.3 mmol/L (3.4-5.0); Sodium 143 mmol/L (137-145)
--- NOTE | 2024-07-30 11:22 | PC.NURSE ---
Dr. Agudelo notified of [facility] of 16. See MAR for pharmacological intervention.
[2024-07-30 11:25] LABS: Alanine Aminotransferase 66 U/L (6-50)
--- NOTE | 2024-07-30 11:35 | ED_ITS ---
HPI - General Adult General Chief complaint: GI Bleed Stated complaint: SPONTANEOUS VOMITING WITH BLOOD THIS AM Time Seen by Provider: 07/30/24 10:07 Source: patient Mode of arrival: ambulatory Limitations: no limitations History of Present Illness HPI narrative: 54-year-old with a history of anxiety, depression, chronic alcohol use here with the complaints of vomiting bright red blood earlier this have morning. Patient states that he has been drinking on a daily basis. Presently going through a separation. He denies any chest pain or shortness of breath or abdominal pain. Patient mentions that he had 3 shots of alcohol 3 hours ago Onset (ago): hour(s) (3) Radiation: non-radiation Relieving factors: none Exacerbating factors: none Associated symptoms: confusion Related Data Allergies Allergy/AdvReac Type Severity Reaction Status Date / Time erythromycin base AdvReac Nausea Verified 07/30/24 10:03 Review of Systems 2 Review of Systems: All systems reviewed & are unremarkable except as noted in HPI and below Constitutional: Constitutional: Reports no additional constitutional complaints Eyes: Eyes: Reports no additional eye complaints ENT: Reports system reviewed and no additional complaints, except as documented Cardiovascular: Cardiovascular: Reports no additional cardiovascular complaints Respiratory: Respiratory: Reports no additional respiratory complaints Gastrointestinal: Gastrointestinal: Reports as per HPI Musculoskeletal: Musculoskeletal: Reports no additional musculoskeletal complaints Integumentary/Breasts: Skin/Breast: Reports system reviewed and no additional complaints, except as docu Neurologic: Reports system reviewed and no additional complaints, except as documented PMFSH Past Medical History Medical History (Updated 07/30/24 @ 12:47 by Liam Jernigan MD) Pre-hypertension PTSD (post-traumatic stress disorder) Anxiety Depression Slipped intervertebral disc Arthritis Family History Family History Mother Family history of bipolar disorder Sibling Family history of bipolar disorder Father Family history of chronic obstructive pulmonary disease Patient's father is Social History Social History (Updated 07/30/24 @ 12:41 by Liam Jernigan MD) Social History: He has been drinking 1 pint of vodka every day for last 7 days, he chews tobacco and smokes marijuana. Denies any other drug use. Works at [employer] Smoking end date: 04/27/09 Alcohol intake: never Exam 2 Narrative: GENERAL: Well-appearing, well-nourished, appears to be very anxious HEAD: Normocephalic, atraumatic. EYES: PERRLA and EOMI. ENT: Nares clear, no rhinorrhea or epistaxis. Mucous membranes moist. NECK: Supple. CHEST: Clear to auscultation. No respiratory distress. HEART: Tachycardic ABDOMEN: Soft, nontender, nondistended, normal active bowel sounds. EXTREMITIES: Normal range of motion. No edema. SKIN: Warm, dry, no rash. NEURO: No focal deficits. Alert and oriented x3. Has fine tremor PSYCH: Normal mood and affect. Course Course Emergency Course: While I was coming out of the room patient had a full tonic-clonic seizure , I did give him a IV Ativan 2 mg few minutes later he came out of her bed and is maintaining his airway. I discussed lab work EKG findings with the patient. Discussed with the hospitalist and data entry analyst agreed with admission. I also consulted Dr. Flannery Vital Signs Vital signs: Vital Signs Pulse Rate 88 07/30/24 10:25 Respiratory Rate 22 H 07/30/24 10:25 Blood Pressure 169/101 H 07/30/24 10:25 Pulse Oximetry 96 07/30/24 10:25 Oxygen Delivery Nasal Cannula 07/30/24 10:25 Oxygen Flow Rate 2 07/30/24 10:25 Temperature 37.1 C 07/30/24 10:46 Pulse Rate 89 07/30/24 13:18 Respiratory Rate 19 07/30/24 13:18 Blood Pressure 150/91 H 07/30/24 13:18 Pulse Oximetry 95 07/30/24 13:18 Oxygen Delivery Room Air 07/30/24 10:45 Oxygen Flow Rate 2 07/30/24 10:30 Medical Decision Making Medical Records Medical records reviewed: Yes I reviewed the external patient's medical records. Vital Signs Vital Signs: Vital Signs Pulse Rate 88 07/30/24 10:25 Respiratory Rate 22 H 07/30/24 10:25 Blood Pressure 169/101 H 07/30/24 10:25 Pulse Oximetry 96 07/30/24 10:25 Oxygen Delivery Nasal Cannula 07/30/24 10:25 Oxygen Flow Rate 2 07/30/24 10:25 Temperature 37.1 C 07/30/24 10:46 Pulse Rate 89 07/30/24 13:18 Respiratory Rate 19 07/30/24 13:18 Blood Pressure 150/91 H 07/30/24 13:18 Pulse Oximetry 95 07/30/24 13:18 Oxygen Delivery Room Air 07/30/24 10:45 Oxygen Flow Rate 2 07/30/24 10:30 Lab Data Lab results reviewed: Yes I reviewed the patient's lab results. 07/30/24 10:39 07/30/24 10:39 Labs: Lab Results 07/30/24 07/30/24 07/30/24 Range/Units 10:39 12:30 12:55 WBC 23.8 H (4.5-10.0) K/mm3 RBC 5.51 (4.6-6.20) M/mm3 Hgb 18.4 H (14.0-18.0) g/dL Hct 54.0 H (42.0-52.0) % MCV 98.0 (80-100) fl MCH 33.4 (26-34) pg MCHC 34.1 (32-36) g/dl RDW 13.6 (11.5-14.5) % Plt Count 266 (150-375) k/mm3 MPV 10.4 (7.4-10.4) fl Immature Gran % (Auto) 0.7 H (0-0.5) % Neut % (Auto) 79.9 H (45.5-73.1) % Lymph % (Auto) 13.3 L (18.3-44.2) % [place] % (Auto) 5.7 (2.6-8.5) % Eos % (Auto) 0.1 (0-4.4) % Baso % (Auto) 0.3 (0.2-1.2) % Lymph # (Auto) 3.18 (0.9-3.2) K/mm3 [place] # (Auto) 1.4 H (0.1-0.6) K/mm3 Eos # (Auto) 0.0 (0-0.3) K/mm3 Baso # (Auto) 0.1 (0.0-0.1) K/mm3 Abs Immat Gran (auto) 0.16 H (0.00-0.031) K/mm3 Absolute Neuts (auto) 19.1 H (1.3-6.7) K/mm3 Absolute Nucleated RBC 0.000 (0.0-0.012) K/mm3 Nucleated RBC % 0.0 (0.0-0.2) % PT 15.8 H (11.1-14.7) Seconds INR 1.2 Sodium 143 (137-145) mmol/L Potassium 3.3 L (3.4-5.0) mmol/L Chloride 100 (98-107) mmol/L Carbon Dioxide < 5 L (22-30) mmol/L Anion Gap (4-12) mmol/L BUN 9 (9-20) mg/dL Creatinine 1.13 (0.7-1.3) mg/dL Estim Creat Clear Calc Not Reportable Estimated GFR > 60 (59 - ) Glucose 160 H (65-110) mg/dL Calcium 9.9 (8.4-10.2) mg/dL Total Bilirubin 1.4 H (0.2-1.3) mg/dL GGT Pending AST 68 H (17-59) U/L ALT 66 H (6-50) U/L Alkaline Phosphatase 68 (38-126) U/L Ammonia 16 (9-30) umol/L Total Protein 9.0 H (6.3-8.2) g/dL Albumin 5.7 H (3.5-5.1) g/dL Lipase 47 (23-300) U/L Urine Opiates Screen Negative (Negative) Urine Methadone Screen Negative (Negative) Ur Barbiturates Screen Negative (Negative) Ur Phencyclidine Scrn Negative (Negative) Ur Amphetamine Screen Positive A (Negative) U Benzodiazepines Scrn Negative (Negative) Urine Cocaine Screen Negative (Negative) U Cannabinoids Screen Positive A (Negative) Ethyl Alcohol < 10 (<10) mg/dL Imaging Data Radiologist's impression: ITS Impressions Head CT 07/30/24 12:12 IMPRESSION: 1. Normal head CT. ECG Data EKG #1: ECG completion date: 07/30/24 ECG completion time: 10:45 EKG Interpretation: normal rate (98), sinus rhythm, normal QT and NL axis Critical Care Time Critical Care Time Critical Care Time: Yes Total Critical Care Time: 45 Discharge Plan Discharge Clinical Impression: Upper gastrointestinal hemorrhage Alcohol withdrawal Qualifiers: Complication of substance-induced condition: uncomplicated Qualified Code(s): F 10.723 - Alcohol use, unspecified with withdrawal, uncomplicated Alcohol withdrawal seizure Qualifiers: Complication of substance-induced condition: uncomplicated Qualified Code(s): F 10.930 - Alcohol use, unspecified with withdrawal, uncomplicated Patient Disposition: Still a Patient Condition: Stable Patient Language: Georgian Follow-up/Referrals: Bianca,Chery Yi MD [Primary Care Provider] - Time of Disposition: 12:31
[2024-07-30] MEDS: PHENobarbitaL sodium (*CRX) 130 MG/ML VIAL 100 MG IV PUSH (11:37)
[2024-07-30] MEDS: KCL 20 MEQ/D5/0.45% SOD CHL 1,000 ML 100 ML IV CONT (12:19)
[2024-07-30] MEDS: THIAMINE HCL 200 MG/2 ML VIAL 100 MG IV PUSH (12:20)
[2024-07-30] MEDS: FOLIC ACID 1 MG/0.2 ML INJ IV PUSH (12:20)
--- NOTE | 2024-07-30 12:38 | WPDCNINT ---
Assessment and Plan Assessment and plan (1) Upper gastrointestinal hemorrhage: Code(s): K92.2 - Gastrointestinal hemorrhage, unspecified Status: Acute Assessment and Plan: Patient presented with 1 episode of vomiting blood. He has had history of heavy alcohol intake. Differential suggest peptic ulcer disease versus gastritis versus esophagitis versus Karen-Saeed tear No evidence of chronic liver disease at this time NPO PPI IV q.12 hours IV fluid Monitor hemoglobin every 6 hours and transfuse if need Consult nephrology (2) Alcohol withdrawal: Qualifiers: Complication of substance-induced condition: uncomplicated Qualified Code(s): F10.930 - Alcohol use, unspecified with withdrawal, uncomplicated Code(s): F10.939 - Alcohol use, unspecified with withdrawal, unspecified Status: Acute Assessment and Plan: Patient exhibiting signs of alcohol withdrawal. He he claims that he has not been drinking much prior to this week but I am not sure if his history is reliable CIWA monitoring P.r.n. lorazepam IV fluid bolus and infusion IV thiamine and folic acid (3) Alcohol withdrawal seizure: Qualifiers: Complication of substance-induced condition: uncomplicated Qualified Code(s): F10.930 - Alcohol use, unspecified with withdrawal, uncomplicated; R56.9 - Unspecified convulsions Code(s): F10.939 - Alcohol use, unspecified with withdrawal, unspecified; R56.9 - Unspecified convulsions Status: Acute Assessment and Plan: Patient had 1 brief episode of seizure in the ER. From history and clinical presentation appears to be alcohol withdrawal Head CT ordered and pending Patient received Ativan and phenobarb in the ER Seizure precaution P.r.n. Ativan If reoccurs will consider EEG and/or Neurology consult (4) Depression: Code(s): F32.A - Depression, unspecified Status: Acute Assessment and Plan: History of depression. Will resume home medication He denies any suicidal homicidal ideation (5) Anxiety: Code(s): F41.9 - Anxiety disorder, unspecified Status: Acute Assessment and Plan: History of anxiety. Will resume medication once confirmed (6) Elevated liver enzymes: Code(s): R74.8 - Abnormal levels of other serum enzymes Status: Acute Assessment and Plan: Elevated ALT AST and mildly elevated bilirubin this could be secondary to alcoholic hepatitis. Will obtain right upper quadrant ultrasound Also check GGT and lipase (7) Chronic abdominal pain: Code(s): R10.9 - Unspecified abdominal pain; G89.29 - Other chronic pain Status: Acute Assessment and Plan: Abdominal exam is unremarkable. Patient states that he has mild 3/10 and abdominal pain which has been chronic and has been going on for years Check ultrasound Check lipase (8) Hypertension: Code(s): I10 - Essential (primary) hypertension Status: Acute Assessment and Plan: P.r.n. IV labetalol at this time Plan DVT prophylaxis - SCD Stress ulcer prophylaxis -PPI Nutrition - npo Code Status - Full Code Total Critical Care Time - 30 minutes Due to a high probability of clinically significant, life threatening deterioration, the patient required my highest level of preparedness to intervene emergently and I personally spent this critical care time directly and personally managing the patient. This critical care time included obtaining a history; examining the patient; pulse oximetry; ordering and review of studies; arranging urgent treatment with development of a management plan; evaluation of patient's response to treatment; frequent reassessment; and discussions with other providers. It was exclusive of separately billable procedures and treating other patients and teaching time. Please see Assessment and Plan section and the rest of the note for further information on patient assessment and treatment [employer] Consult Note Consult date: 07/30/24 Reason for consult: Upper GI bleed, alcohol withdrawal seizure HPI: Rex Cleary is a 54 year old male with past medical history of alcohol abuse, degenerate joint disease, depression, anxiety and tobacco abuse presented to ER today after having 1 episode of vomiting blood. Patient states that he has chronic nausea and this morning he vomited and had bright red blood in it. Denies any new abdominal pain. He does have chronic abdominal pain which has not changed. He states he has been drinking a pt of vodka every day for last 1 week after he had a misunderstanding with his . He denies any chest pain shortness a breath fever cough hematuria hematochezia melena. No diarrhea or constipation. He states he has chronic nausea. All other systems were reviewed and were negative Workup in the ER was essentially unremarkable except elevated blood pressure. His potassium was low at 3.3 AST and ALT were mildly elevated and bilirubin was 1.4. White count was 23.8 and alcohol level was less than 10 During evaluation patient had a brief generalized tonic clonic seizure. It spontaneously aborted but patient was postictally at that a. He was given 1 dose of Ativan and also 1 dose of him by ER visit During my evaluation patient was now alert oriented x3 and does not remember what happened. No other change in the history. Review of Systems Review of Systems: All systems reviewed & are unremarkable except as noted in HPI and below (HPI) [facility] Past Medical History Medical History (Updated 07/30/24 @ 12:47 by Liam Jernigan MD) Pre-hypertension PTSD (post-traumatic stress disorder) Anxiety Depression Slipped intervertebral disc Arthritis Family History Family History Mother Family history of bipolar disorder Sibling Family history of bipolar disorder Father Family history of chronic obstructive pulmonary disease Patient's father is Social History Social History (Updated 07/30/24 @ 12:41 by Liam Jernigan MD) Social History: He has been drinking 1 pint of vodka every day for last 7 days, he chews tobacco and smokes marijuana. Denies any other drug use. Works at [employer] Smoking end date: 04/27/09 Alcohol intake: never Meds Home Medications and Allergies Allergies Allergy/AdvReac Type Severity Reaction Status Date / Time erythromycin base AdvReac Nausea Verified 07/30/24 10:03 Vital Signs Vital Signs - 24 hr 07/30/24 10:25 07/30/24 10:30 07/30/24 10:45 Temperature Pulse Rate 88 Respiratory Rate 22 H Blood Pressure 169/101 H Pulse Oximetry 96 Oxygen Delivery Nasal Cannula Nasal Cannula Room Air Oxygen Flow Rate 2 2 07/30/24 10:46 07/30/24 11:23 Temperature 37.1 C Pulse Rate 103 H 108 H Respiratory Rate 22 H 24 H Blood Pressure 141/100 H 165/99 H Pulse Oximetry 97 98 Oxygen Delivery Oxygen Flow Rate Exam Narrative: General: Pt is alert awake and in NAD Lungs/Chest: Trachea central Clear BS B/L, No crackles or wheezing. Cardiac: RRR. Normal S1 S2. No murmurs Circulation: Pedal pulses are intact and symmetrical. Abdomen: Normal bowel sounds.. Soft. NT. ND. Extremities: No clubbing, cyanosis or edema. Warm : Harrell in place Neurologic: Follows commands. Moves all 4 extremities PERRL, AO x 3 tremor in both hands Skin: No Rash Results Labs 07/30/24 10:39 07/30/24 10:39 Labs: Short CBC 07/30/24 Range/Units 10:39 WBC 23.8 H (4.5-10.0) K/mm3 Hgb 18.4 H (14.0-18.0) g/dL Hct 54.0 H (42.0-52.0) % Plt Count 266 (150-375) k/mm3 BMP 07/30/24 10:39 Sodium 143 Potassium 3.3 L Chloride 100 Carbon Dioxide < 5 L BUN 9 Creatinine 1.13 Glucose 160 H Calcium 9.9 Liver Function 07/30/24 Range/Units 10:39 Total Bilirubin 1.4 H (0.2-1.3) mg/dL AST 68 H (17-59) U/L ALT 66 H (6-50) U/L Alkaline Phosphatase 68 (38-126) U/L Albumin 5.7 H (3.5-5.1) g/dL Quality VTE Prophylaxis VTE prophylaxis: mechanical ordered Hospitalist MIPS Advance Care Plan I have confirmed that the patient's Advanced Care Plan is present, code status is documented, or surrogate decision maker is listed in patient medical record.: Yes Medication Reconciliation I have utilized all available resources to obtain, update and review the patients current medications (includes all prescriptions, OTC, herbals, cannabis, and nutritional supplements).: Yes
[2024-07-30 12:49] LABS: Lipase 47 U/L (23-300)
[2024-07-30 12:50] LABS: Ammonia 16 umol/L (9-30)
[2024-07-30] MEDS: LACTATED RINGERS 1,000 ML 999 ML IV CONT (13:17)
[2024-07-30 13:20] LABS: Amphetamine Screen Urine Positive (Negative); Barbiturate Screen Urine Negative (Negative); Benzodiazepines Screen Urine Negative (Negative); Cannabinoid Screen Urine Positive (Negative); Cocaine Screen Urine Negative (Negative); Methadone Screen Urine Negative (Negative); Opiate Screen Urine Negative (Negative); Phencyclidine Screen Urine Negative (Negative)
--- NOTE | 2024-07-30 13:52 | P.HP_ITS ---
H&P: HPI History of Present Illness Date/Time: 07/30/24 13:52 Chief Complaint: Vomiting blood Narrative: 54-year-old man past medical history of alcohol abuse, PTSD anxiety and depression presents the hospital with vomiting blood. Patient states that over the last week he has had increase in his alcohol use due to stress at home. He states that his last drink was on , he was drinking about a 5th a day. Patient states he was trying to stop drinking cold turkey. He states that he had 1 incident of vomiting blood. He states that he has a history of gastric bleed and alcohol withdrawal seizures. In the ED patient had leukocytosis of 23.8, hemoglobin 18.4, potassium of 3.3, carbon dioxide of less than 5, total bilirubin of 1.4, AST is 68, AST of 66, urine toxicology test was positive for amphetamines and cannabinoids, ethanol level was negative. Abdominal ultrasound showed diffuse hepatic steatosis. Head CT showed no acute findings. Patient is on vyvanse for ADHD. Review of Systems Review of Systems: 12 systems were reviewed and are negativ e except for as per HPI. [facility] Past Medical History Medical History (Updated 07/30/24 @ 12:47 by Liam Jernigan MD) Pre-hypertension PTSD (post-traumatic stress disorder) Anxiety Depression Slipped intervertebral disc Arthritis Family History Family History Mother Family history of bipolar disorder Sibling Family history of bipolar disorder Father Family history of chronic obstructive pulmonary disease Patient's father is Social History Social History (Updated 07/30/24 @ 12:41 by Liam Jernigan MD) Social History: He has been drinking 1 pint of vodka every day for last 7 days, he chews tobacco and smokes marijuana. Denies any other drug use. Works at [employer] Years smoked: 26 Smoking status: Former smoker Tobacco type: cigarettes Smokeless tobacco user: chewing tobacco Smoking end date: 04/27/09 Additional smoking assessment comments: Current chewing tobacco use. Alcohol intake: current Substance use: current Substance use type: marijuana Last use: Do You Feel Safe in your Home?: Yes Lack of Transportation: No Lack of Food: Never True Current Housing: I Have Housing Concerned About Future Housing: No Difficulty Paying Gas/Electric Bills: No Difficulty Paying for Meds: No Currently Unemployed: No Education: Decline to Answer Difficulty w/ Childcare or Family Care: No Spiritual care concerns: No Meds Home Medications and Allergies Home Medications ?Medication ?Instructions ?Recorded ?Confirmed ?Type buspirone 10 mg tablet 10 mg PO BID 07/30/24 07/30/24 History clonazepam 1 mg tablet 1 mg PO TID anxiety 07/30/24 07/30/24 History escitalopram oxalate 20 mg tablet 20 mg PO DAILY 07/30/24 07/30/24 History lisdexamfetamine 20 mg capsule 40 mg PO QAM 07/30/24 07/30/24 History mirtazapine 30 mg tablet 30 mg PO HS appetite, depression. 07/30/24 07/30/24 History trazodone 100 mg tablet 100 mg PO HS 07/30/24 07/30/24 History Allergies Allergy/AdvReac Type Severity Reaction Status Date / Time erythromycin base AdvReac Nausea Verified 07/30/24 15:49 Vital Signs Vital Signs - 24 hr 07/30/24 10:25 07/30/24 10:30 07/30/24 10:45 Temperature Pulse Rate 88 Respiratory Rate 22 H Blood Pressure 169/101 H Pulse Oximetry 96 Oxygen Delivery Nasal Cannula Nasal Cannula Room Air Oxygen Flow Rate 2 2 07/30/24 10:46 07/30/24 11:23 07/30/24 12:32 Temperature 98.7 F Pulse Rate 103 H 108 H 98 Respiratory Rate 22 H 24 H 16 Blood Pressure 141/100 H 165/99 H 155/97 H Pulse Oximetry 97 98 96 Oxygen Delivery Oxygen Flow Rate 07/30/24 13:18 07/30/24 13:45 Temperature Pulse Rate 89 87 Respiratory Rate 19 16 Blood Pressure 150/91 H 116/69 Pulse Oximetry 95 96 Oxygen Delivery Oxygen Flow Rate Exam Narrative: General: well appearing, appears stated age. Diaphoretic HEENT: normocephalic, atraumatic. Mucous membranes moist. EOMI, PERRLA, bilateral sclera anicteric, no conjunctival injection. Neck supple without JVD, lymphadenopathy, or bruit. Respiratory: clear to ascultation bilaterally. No rales/rhonic/wheezes. Cardiovascular: Regular rate and rhythm, normal S1-S2 upon ascultation. No murmurs, rubs, or clicks. PMI is nondisplaced, capillary refill less than [address] Abdomen: Soft, round, no pulsatile masses, nondistended and nontender. No rebound, no guarding. No CVA tenderness, no hepatosplenomegaly. Bowel sounds present to all four quadrants. No high pitch or tinkling sounds, resonant to percussion. Extremities: No cyanosis, clubbing, or edema present. Pulses are palpable 2/2. Active ROM to all four extremities. Minor tremors Neuro: Alert and orientated x 4. PERRLA. Cranial nerves 2-12 intact without focal deficit. Skin: Warm, dry, and intact, without rash, erythema, or lesion. Psych: pleasant, cooperative, normal speech, normal affect, no hallucinations, no dysarthia H&P: Results Labs Labs: Short CBC 07/30/24 Range/Units 10:39 WBC 23.8 H (4.5-10.0) K/mm3 Hgb 18.4 H (14.0-18.0) g/dL Hct 54.0 H (42.0-52.0) % Plt Count 266 (150-375) k/mm3 BMP 07/30/24 10:39 Sodium 143 Potassium 3.3 L Chloride 100 Carbon Dioxide < 5 L BUN 9 Creatinine 1.13 Glucose 160 H Calcium 9.9 Liver Function 07/30/24 Range/Units 10:39 Total Bilirubin 1.4 H (0.2-1.3) mg/dL AST 68 H (17-59) U/L ALT 66 H (6-50) U/L Alkaline Phosphatase 68 (38-126) U/L Albumin 5.7 H (3.5-5.1) g/dL Assessment and Plan Assessment and plan (1) Alcohol withdrawal seizure: Qualifiers: Complication of substance-induced condition: uncomplicated Qualified Code(s): F10.930 - Alcohol use, unspecified with withdrawal, uncomplicated; R56.9 - Unspecified convulsions Code(s): F10.939 - Alcohol use, unspecified with withdrawal, unspecified; R56.9 - Unspecified convulsions Status: Acute Assessment and Plan: Patient was given phenobarbital and Ativan in the emergency room Admitted to ICU Alcohol withdrawal protocol with Ativan, thiamine, folic acid and Librium Banana bag Seizure precautions CMP in the morning (2) Alcohol withdrawal: Qualifiers: Complication of substance-induced condition: uncomplicated Qualified Code(s): F10.930 - Alcohol use, unspecified with withdrawal, uncomplicated Code(s): F10.939 - Alcohol use, unspecified with withdrawal, unspecified Status: Acute Assessment and Plan: See above (3) Elevated liver enzymes: Code(s): R74.8 - Abnormal levels of other serum enzymes Status: Acute Assessment and Plan: Secondary to alcohol abuse Okay for 500 mg of Tylenol q.6 for headache Repeat CMP in the morning (4) Hypertension: Code(s): I10 - Essential (primary) hypertension Status: Acute Assessment and Plan: Hydralazine p.r.n. (5) Upper gastrointestinal hemorrhage: Code(s): K92.2 - Gastrointestinal hemorrhage, unspecified Status: Acute Assessment and Plan: History of gastric varices Hemoglobin on presentation was hemoconcentrated Hemoglobin trending down likely due to hydration Q.6 H&H GI consulted for possible scope Quality VTE Prophylaxis VTE prophylaxis: mechanical ordered If No VTE Prophylaxis Answer both mechanical and pharmacologic: Reason no pharmacologic proph: medical contraindication Hospitalist MIPS Advance Care Plan I have confirmed that the patient's Advanced Care Plan is present, code status is documented, or surrogate decision maker is listed in patient medical record.: Yes Medication Reconciliation I have utilized all available resources to obtain, update and review the patients current medications (includes all prescriptions, OTC, herbals, cannabis, and nutritional supplements).: Yes
--- NOTE | 2024-07-30 15:01 | PC.NURSE ---
Report received by NICK Cortez with the ER at 1334.
--- NOTE | 2024-07-30 15:02 | ADMGEN ---
This patient, Rex Cleary, was admitted to Intensive Care Unit-3 at 1407. Patient/family oriented to hospital policies and general routines including ID bracelet, bed and alarms, visiting hours, pain management, procedures, bathroom and other care routines, personal items, smoking policy, room service/diet, and visiting hours. Information on how to activate the Rapid Response Team has been discussed. Patient/Family are encouraged to report perceived risks to care and to ask questions if they do not understand what they are told or what they should do.
[2024-07-30 16:18] LABS: Glucose Point of Care 128 mg/dl (65-105)
[2024-07-30 16:42] LABS: Hematocrit 43.5 % (42.0-52.0); Hemoglobin 15.3 g/dL (14.0-18.0)
[2024-07-30] MEDS: chlordiazePOXIDE (*CRX) 25 MG CAPSULE 50 MG PO ×2 (16:51→23:29)
[2024-07-30 17:26] LABS: MRSA (PCR) NOT DETECTED (NOT DETECTE)
--- NOTE | 2024-07-30 18:16 | PC.NURSE ---
Patient verbally reports alcohol consumption for last 7 days. Patient states he has been drinking anywhere from a pint to a pint and a half daily of vodka. Patient states his last drink of alcohol was , patient denies fci alcohol consumption, and states this 7 day drinking episode was an isolated event r/t stress.
[2024-07-30] MEDS: NICOTINE (*PBKC) 21 MG PATCH 1 PATCH TRANSDERM (18:32)
[2024-07-30 18:41] LABS: Glucose Point of Care 93 mg/dl (65-105)
[2024-07-30] MEDS: ACETAMINOPHEN 500 MG TABLET PO (20:25)
--- NOTE | 2024-07-30 23:14 | PC.NURSE ---
[facility] SUPPORT SPECIALIST called to verify discontinuation of IV fluids. Patient had borderline potassium levels, and has had poor oral intake. Order received for D5 1/2NS with 20mEq KCL at 75/hr.
[2024-07-30] MEDS: KCL 20 MEQ/D5/0.45% SOD CHL 1,000 ML 75 ML IV CONT (23:21)
[2024-07-30 23:24] LABS: Hematocrit 42.6 % (42.0-52.0); Hemoglobin 14.7 g/dL (14.0-18.0)
[2024-07-30] MEDS: busPIRone HCL 10 MG TABLET PO (23:32)
[2024-07-30] MEDS: clonazePAM (*CRX) 0.5 MG TABLET 1 MG PO (23:32)
[2024-07-30 23:38] LABS: Glucose Point of Care 85 mg/dl (65-105)
[2024-07-31] VITALS (11 sets, daily range): BP systolic 94–113; BP diastolic 57–90; PULSE 55–78; RESP 16–20; TEMP 36.3–37.2; O2SAT 94–100
[2024-07-31 03:52] LABS: Basophils Percent Auto 0.3 % (0.2-1.2); Eosinophils Absolute Auto 0.1 K/mm3 (0-0.3); Hematocrit 42.7 % (42.0-52.0); Hemoglobin 14.8 g/dL (14.0-18.0); Immature Granulocyte Absolute 0.05 K/mm3 (0.00-0.031); Immature Granulocyte Percent A 0.4 % (0-0.5); Lymphocytes Absolute Auto 2.11 K/mm3 (0.9-3.2); Lymphocytes Percent Auto 16.2 % (18.3-44.2); Mean Corpuscular HGB Conc 34.7 g/dl (32-36); Mean Corpuscular Volume 95.3 fl (80-100); Mean Platelet Volume 9.9 fl (7.4-10.4); Monocytes Absolute Auto 1.1 K/mm3 (0.1-0.6); Monocytes Percent Auto 8.1 % (2.6-8.5); Neutrophils Absolute Auto 9.7 K/mm3 (1.3-6.7); Platelet Count Result 149 k/mm3 (150-375); Red Blood Count 4.48 M/mm3 (4.6-6.20); Red Cell Distribution Width 13.5 % (11.5-14.5); White Blood Count 13.1 K/mm3 (4.5-10.0)
[2024-07-31 04:05] LABS: Alanine Aminotransferase 42 U/L (6-50); Albumin Level 3.6 g/dL (3.5-5.1); Alkaline Phosphatase 49 U/L (38-126); Anion Gap 6 mmol/L (4-12); Aspartate Amino Transferase 42 U/L (17-59); Bilirubin,Total 1.5 mg/dL (0.2-1.3); Blood Urea Nitrogen 9 mg/dL (9-20); Calcium 8.4 mg/dL (8.4-10.2); Carbon Dioxide 27 mmol/L (22-30); Chloride 103 mmol/L (98-107); Estimated CRCL calculation 83 ml/min; Estimated Glomerular Filt Rate > 60; Glucose 91 mg/dL (65-110); Magnesium 2.2 mg/dL (1.6-2.3); Potassium 3.5 mmol/L (3.4-5.0); Sodium 136 mmol/L (137-145)
--- NOTE | 2024-07-31 04:56 | PM.EVENT ---
Event Note Event Note Event Note: Notified by nurse Jenn pt had 521cc post void bladder residual. straight cath x1 ordered (pt concurrently refused indwelling martinez catheter placement)
--- NOTE | 2024-07-31 04:57 | PC.NURSE ---
Patient having difficulty voiding. Bladder scan >911 prior to getting up to commode. Dr. Garcia called due to post void residual of 521 after voiding 350. Patient prefers to not have an indwelling catheter at this time-order received to straight cath x1.
[2024-07-31] MEDS: chlordiazePOXIDE (*CRX) 25 MG CAPSULE 50 MG PO (05:09)
--- NOTE | 2024-07-31 08:06 | WPDINTPN ---
Progress Note: A&P Assessment and Plan (1) Upper gastrointestinal hemorrhage: Code(s): K92.2 - Gastrointestinal hemorrhage, unspecified Status: Acute Assessment and Plan: Patient presented with 1 episode of vomiting blood. He has had history of heavy alcohol intake. Differential suggest peptic ulcer disease versus gastritis versus esophagitis versus Karen-Saeed tear No evidence of chronic liver disease at this time No recurrence in the ICU Clear liquid diet PPI IV q.12 hours IV fluid will be continued per low rate Monitor hemoglobin every 6 hours and transfuse if need. Hemoglobin has been stable for now GI consulted. I anticipate patient will need EGD tomorrow (2) Alcohol withdrawal: Qualifiers: Complication of substance-induced condition: uncomplicated Qualified Code(s): F10.930 - Alcohol use, unspecified with withdrawal, uncomplicated Code(s): F10.939 - Alcohol use, unspecified with withdrawal, unspecified Status: Acute Assessment and Plan: Patient exhibiting signs of alcohol withdrawal. He he claims that he has not been drinking much prior to this week but I am not sure if his history is reliable CIWA monitoring Schedule Librium. Will lower the dose to 25 mg P.r.n. lorazepam IV fluid bolus and infusion IV thiamine and folic acid (3) Alcohol withdrawal seizure: Qualifiers: Complication of substance-induced condition: uncomplicated Qualified Code(s): F10.930 - Alcohol use, unspecified with withdrawal, uncomplicated; R56.9 - Unspecified convulsions Code(s): F10.939 - Alcohol use, unspecified with withdrawal, unspecified; R56.9 - Unspecified convulsions Status: Acute Assessment and Plan: Patient had 1 brief episode of seizure in the ER. From history and clinical presentation appears to be alcohol withdrawal Head CT negative Patient received Ativan and phenobarb in the ER No recurrence in ICU Seizure precaution P.r.n. Ativan If reoccurs will consider EEG and/or Neurology consult (4) Depression: Code(s): F32.A - Depression, unspecified Status: Acute Assessment and Plan: History of depression. Continue home medication He denies any suicidal homicidal ideation (5) Anxiety: Code(s): F41.9 - Anxiety disorder, unspecified Status: Acute Assessment and Plan: History of anxiety. Continue home medication (6) Elevated liver enzymes: Code(s): R74.8 - Abnormal levels of other serum enzymes Status: Acute Assessment and Plan: Elevated ALT AST and mildly elevated bilirubin this could be secondary to alcoholic hepatitis. Pending GGT and normal lipase Right upper quadrant ultrasound showed IMPRESSION: 1. Diffuse hepatic steatosis. 2. Normal gallbladder and no intra or extra hepatic biliary ductal dilation. (7) Chronic abdominal pain: Code(s): R10.9 - Unspecified abdominal pain; G89.29 - Other chronic pain Status: Acute Assessment and Plan: Abdominal exam is unremarkable. Patient states that he has mild 3/10 and abdominal pain which has been chronic and has been going on for years Ultrasound as above No lipase (8) Hypertension: Code(s): I10 - Essential (primary) hypertension Status: Acute Assessment and Plan: P.r.n. IV labetalol at this time Plan DVT prophylaxis - SCD Stress ulcer prophylaxis -PPI Nutrition -clear liquid diet Code Status - Full Code Transfer out of ICU to Subjective Date/time seen: 07/31/24 Overnight events reviewed. Afebrile. On room air Vital signs stable No recurrence of vomiting hematochezia melena Patient denies any new complaints and feels better. He states he slept well. Patient denies fever, chest pain, shortness of breath, cough, nausea vomiting, abdominal pain,, diarrhea, headache or constipation. All other systems were reviewed and were negative Acceptable urine output Other Vitals acceptable Clear liquid diet Review of Systems Review of Systems: All systems reviewed & are unremarkable except as noted in HPI and below (HPI) Exam Narrative: General: Pt is alert awake and in NAD Lungs/Chest: Trachea central Clear BS B/L, No crackles or wheezing. Cardiac: RRR. Normal S1 S2. No murmurs Circulation: Pedal pulses are intact and symmetrical. Abdomen: Normal bowel sounds.. Soft. NT. ND. Extremities: No clubbing, cyanosis or edema. Warm : Harrell in place Neurologic: Follows commands. Moves all 4 extremities PERRL, AO x 3 tremor in both hands Skin: No Rash Objective Data Vital Signs Vital Signs: Vital Signs - 24 hr 07/30/24 10:25 07/30/24 10:30 07/30/24 10:45 Temperature Pulse Rate 88 Pulse Rate [Monitor] Respiratory Rate 22 H Blood Pressure 169/101 H Pulse Oximetry 96 Oxygen Delivery Nasal Cannula Nasal Cannula Room Air Oxygen Flow Rate 2 2 07/30/24 10:46 07/30/24 11:23 07/30/24 12:32 Temperature 37.1 C Pulse Rate 103 H 108 H 98 Pulse Rate [Monitor] Respiratory Rate 22 H 24 H 16 Blood Pressure 141/100 H 165/99 H 155/97 H Pulse Oximetry 97 98 96 Oxygen Delivery Oxygen Flow Rate 07/30/24 13:18 07/30/24 13:45 07/30/24 14:16 Temperature Pulse Rate 89 87 94 Pulse Rate [Monitor] Respiratory Rate 19 16 20 Blood Pressure 150/91 H 116/69 Pulse Oximetry 95 96 96 Oxygen Delivery Room Air Oxygen Flow Rate 07/30/24 15:01 07/30/24 16:00 07/30/24 16:00 Temperature 37.2 C 36.6 C Pulse Rate 90 92 Pulse Rate [Monitor] Respiratory Rate 17 15 Blood Pressure 156/99 H 125/81 Pulse Oximetry 96 94 Oxygen Delivery Oxygen Flow Rate 07/30/24 16:00 07/30/24 16:00 07/30/24 16:00 Temperature Pulse Rate 92 92 Pulse Rate [Monitor] 83 Respiratory Rate Blood Pressure Pulse Oximetry Oxygen Delivery Oxygen Flow Rate 07/30/24 18:00 07/30/24 18:00 07/30/24 20:00 Temperature 36.8 C Pulse Rate 85 88 83 Pulse Rate [Monitor] Respiratory Rate 20 20 Blood Pressure 104/84 111/75 Pulse Oximetry 97 95 Oxygen Delivery Oxygen Flow Rate 07/30/24 20:00 07/30/24 20:00 07/30/24 20:15 Temperature Pulse Rate 83 Pulse Rate [Monitor] 82 Respiratory Rate Blood Pressure 118/72 Pulse Oximetry 98 Oxygen Delivery Room Air Oxygen Flow Rate 07/30/24 21:06 07/30/24 22:00 07/30/24 22:29 Temperature Pulse Rate 96 69 68 Pulse Rate [Monitor] Respiratory Rate 20 20 Blood Pressure 107/72 Pulse Oximetry 96 95 Oxygen Delivery Room Air Oxygen Flow Rate 07/30/24 23:27 07/30/24 23:41 07/31/24 00:00 Temperature Pulse Rate 76 Pulse Rate [Monitor] 87 Respiratory Rate Blood Pressure 106/70 Pulse Oximetry 95 Oxygen Delivery Room Air Oxygen Flow Rate 07/31/24 00:00 07/31/24 02:00 07/31/24 02:15 Temperature 36.6 C Pulse Rate 71 73 70 Pulse Rate [Monitor] Respiratory Rate 20 20 Blood Pressure 107/67 94/57 L Pulse Oximetry 95 96 Oxygen Delivery Oxygen Flow Rate 07/31/24 04:00 07/31/24 04:00 07/31/24 04:00 Temperature 36.5 C Pulse Rate 65 Pulse Rate [Monitor] 56 L Respiratory Rate 18 Blood Pressure 110/69 110/69 Pulse Oximetry 94 100 Oxygen Delivery Room Air Oxygen Flow Rate 07/31/24 04:00 07/31/24 06:08 07/31/24 06:08 Temperature Pulse Rate 59 L 69 69 Pulse Rate [Monitor] Respiratory Rate Blood Pressure 105/71 Pulse Oximetry 94 Oxygen Delivery Oxygen Flow Rate Intake/Output Intake/Output: Intake & Output 07/28/24 07/29/24 07/30/24 07/31/24 23:59 23:59 23:59 23:59 Intake Total 2530 468.8 Output Total 500 655 Balance 2030 -186.2 Meds/Results Medications: Active Medications Generic Name Dose Route Start Last Admin Trade Name Freq PRN Reason Stop Dose Admin Acetaminophen 500 mg 07/30/24 19:19 07/30/24 20:25 Acetaminophen 500 Mg Tablet PO 500 mg Q6H PRN Administration Mild Pain (1-3) or Fever Buspirone HCl 10 mg 07/30/24 23:25 07/30/24 23:32 Buspirone Hcl 10 Mg Tablet PO 10 mg BID YURY Administration Chlordiazepoxide HCl 25 mg 07/31/24 12:00 Chlordiazepoxide (*Crx) 25 Mg Capsule PO Q6HR YURY Clonazepam 1 mg 07/31/24 08:04 Clonazepam (*Crx) 0.5 Mg Tablet PO TID PRN Anxiety Escitalopram Oxalate 20 mg 07/31/24 09:00 Escitalopram Oxalate 10 Mg Tablet PO DAILY YURY Folic Acid 1 mg 07/31/24 09:00 Folic Acid 1 Mg/0.2 Ml Inj IV PUSH QAM YURY Potassium Chloride/Dextrose/Sod Cl 1,000 mls @ 50 mls/hr 07/30/24 23:10 07/31/24 05:36 Kcl 20 Meq/D5/0.45% Sod Chl IV CONT 75 mls/hr .Q20H YURY Infusion Labetalol HCl 20 mg 07/30/24 12:40 Labetalol Hcl Inj 100 Mg/20 Ml Vial IV PUSH Q4H PRN SBP > 160 and HR> 60 -1st choice Lorazepam 4 mg 07/30/24 11:48 Lorazepam Inj (*Crx) 2 Mg/Ml Vial IV PUSH Q1H PRN Seizure Lorazepam 1 mg 07/30/24 12:33 Lorazepam Inj (*Crx) 2 Mg/Ml Vial IV PUSH Q1H PRN CIWA 8-14 Lorazepam 2 mg 07/30/24 12:33 07/30/24 20:32 Lorazepam Inj (*Crx) 2 Mg/Ml Vial IV PUSH 2 mg Q1H PRN Administration CIWA Score 15 or more Nicotine 1 patch 07/31/24 09:00 Nicotine (*Pbkc) 21 Mg Patch TRANSDERM DAILY YURY Ondansetron HCl 4 mg 07/30/24 12:32 Ondansetron Inj 4 Mg/2 Ml Vial IV PUSH Q4H PRN Nausea Pantoprazole Sodium 40 mg 07/30/24 21:00 07/30/24 20:26 Pantoprazole Sodium Iv 40 Mg Vial IV PUSH 40 mg Q12HR YURY Administration Thiamine HCl 100 mg 07/30/24 09:00 07/30/24 11:58 Thiamine Hcl 200 Mg/2 Ml Vial IV PUSH Not Given QAM [facility] Radiology Results: ITS Impressions Head CT 07/30/24 12:12 IMPRESSION: 1. Normal head CT. Abdomen Ultrasound 07/30/24 12:24 IMPRESSION: 1. Diffuse hepatic steatosis. 2. Normal gallbladder and no intra or extra hepatic biliary ductal dilation. Labs Labs: Laboratory Results - last 24 hr 07/30/24 07/30/24 07/30/24 10:39 12:30 12:55 WBC 23.8 H RBC 5.51 Hgb 18.4 H Hct 54.0 H MCV 98.0 MCH 33.4 MCHC 34.1 RDW 13.6 Plt Count 266 MPV 10.4 Immature Gran % (Auto) 0.7 H Neut % (Auto) 79.9 H Lymph % (Auto) 13.3 L [place] % (Auto) 5.7 Eos % (Auto) 0.1 Baso % (Auto) 0.3 Lymph # (Auto) 3.18 [place] # (Auto) 1.4 H Eos # (Auto) 0.0 Baso # (Auto) 0.1 Abs Immat Gran (auto) 0.16 H Absolute Neuts (auto) 19.1 H Absolute Nucleated RBC 0.000 Nucleated RBC % 0.0 PT 15.8 H INR 1.2 Sodium 143 Potassium 3.3 L Chloride 100 Carbon Dioxide < 5 L Anion Gap BUN 9 Creatinine 1.13 Estim Creat Clear Calc Not Reportable Estimated GFR > 60 Glucose 160 H POC Capillary Glucose Calcium 9.9 Magnesium Total Bilirubin 1.4 H AST 68 H ALT 66 H Alkaline Phosphatase 68 Ammonia 16 Total Protein 9.0 H Albumin 5.7 H Lipase 47 Nasal MRSA (PCR) Urine Opiates Screen Negative Urine Methadone Screen Negative Ur Barbiturates Screen Negative Ur Phencyclidine Scrn Negative Ur Amphetamine Screen Positive A U Benzodiazepines Scrn Negative Urine Cocaine Screen Negative U Cannabinoids Screen Positive A Ethyl Alcohol < 10 07/30/24 07/30/24 07/30/24 16:08 16:11 16:37 WBC RBC Hgb 15.3 D Hct 43.5 MCV MCH MCHC RDW Plt Count MPV Immature Gran % (Auto) Neut % (Auto) Lymph % (Auto) [place] % (Auto) Eos % (Auto) Baso % (Auto) Lymph # (Auto) [place] # (Auto) Eos # (Auto) Baso # (Auto) Abs Immat Gran (auto) Absolute Neuts (auto) Absolute Nucleated RBC Nucleated RBC % PT INR Sodium Potassium Chloride Carbon Dioxide Anion Gap BUN Creatinine Estim Creat Clear Calc Estimated GFR Glucose POC Capillary Glucose 128 H Calcium Magnesium Total Bilirubin AST ALT Alkaline Phosphatase Ammonia Total Protein Albumin Lipase Nasal MRSA (PCR) Not detected Urine Opiates Screen Urine Methadone Screen Ur Barbiturates Screen Ur Phencyclidine Scrn Ur Amphetamine Screen U Benzodiazepines Scrn Urine Cocaine Screen U Cannabinoids Screen Ethyl Alcohol 07/30/24 07/30/24 07/30/24 18:35 22:56 23:25 WBC RBC Hgb 14.7 Hct 42.6 MCV MCH MCHC RDW Plt Count MPV Immature Gran % (Auto) Neut % (Auto) Lymph % (Auto) [place] % (Auto) Eos % (Auto) Baso % (Auto) Lymph # (Auto) [place] # (Auto) Eos # (Auto) Baso # (Auto) Abs Immat Gran (auto) Absolute Neuts (auto) Absolute Nucleated RBC Nucleated RBC % PT INR Sodium Potassium Chloride Carbon Dioxide Anion Gap BUN Creatinine Estim Creat Clear Calc Estimated GFR Glucose POC Capillary Glucose 93 85 Calcium Magnesium Total Bilirubin AST ALT Alkaline Phosphatase Ammonia Total Protein Albumin Lipase Nasal MRSA (PCR) Urine Opiates Screen Urine Methadone Screen Ur Barbiturates Screen Ur Phencyclidine Scrn Ur Amphetamine Screen U Benzodiazepines Scrn Urine Cocaine Screen U Cannabinoids Screen Ethyl Alcohol 07/31/24 03:42 WBC 13.1 H RBC 4.48 L Hgb 14.8 Hct 42.7 MCV 95.3 MCH 33.0 MCHC 34.7 RDW 13.5 Plt Count 149 L MPV 9.9 Immature Gran % (Auto) 0.4 Neut % (Auto) 74.0 H Lymph % (Auto) 16.2 L [place] % (Auto) 8.1 Eos % (Auto) 1.0 Baso % (Auto) 0.3 Lymph # (Auto) 2.11 [place] # (Auto) 1.1 H Eos # (Auto) 0.1 Baso # (Auto) 0.0 Abs Immat Gran (auto) 0.05 H Absolute Neuts (auto) 9.7 H Absolute Nucleated RBC 0.000 Nucleated RBC % 0.0 PT INR Sodium 136 L Potassium 3.5 Chloride 103 Carbon Dioxide 27 Anion Gap 6 BUN 9 Creatinine 0.84 Estim Creat Clear Calc 83 Estimated GFR > 60 Glucose 91 POC Capillary Glucose Calcium 8.4 Magnesium 2.2 Total Bilirubin 1.5 H AST 42 ALT 42 Alkaline Phosphatase 49 Ammonia Total Protein 6.0 L Albumin 3.6 Lipase Nasal MRSA (PCR) Urine Opiates Screen Urine Methadone Screen Ur Barbiturates Screen Ur Phencyclidine Scrn Ur Amphetamine Screen U Benzodiazepines Scrn Urine Cocaine Screen U Cannabinoids Screen Ethyl Alcohol Quality VTE Prophylaxis VTE prophylaxis: mechanical ordered
[2024-07-31] MEDS: NICOTINE (*PBKC) 21 MG PATCH 1 PATCH TRANSDERM (09:05)
[2024-07-31] MEDS: ESCITALOPRAM OXALATE 10 MG TABLET 20 MG PO (09:05)
[2024-07-31] MEDS: POTASSIUM CHLORIDE 20 MEQ ER TABLET 40 MEQ PO (09:06)
[2024-07-31] MEDS: THIAMINE HCL 200 MG/2 ML VIAL 100 MG IV PUSH (09:06)
[2024-07-31] MEDS: FOLIC ACID 1 MG/0.2 ML INJ IV PUSH (09:06)
[2024-07-31] MEDS: PANTOPRAZOLE SODIUM IV 40 MG VIAL IV PUSH ×2 (09:06→21:08)
[2024-07-31] MEDS: busPIRone HCL 10 MG TABLET PO ×2 (09:06→16:54)
[2024-07-31] MEDS: clonazePAM (*CRX) 0.5 MG TABLET 1 MG PO ×2 (09:23→16:54)
[2024-07-31 09:48] LABS: Hematocrit 44.1 % (42.0-52.0); Hemoglobin 15.2 g/dL (14.0-18.0)
[2024-07-31] MEDS: chlordiazePOXIDE (*CRX) 25 MG CAPSULE PO ×3 (11:39→23:00)
[2024-07-31 11:44] LABS: Glucose Point of Care 113 mg/dl (65-105)
--- NOTE | 2024-07-31 12:14 | PC.NURSE ---
Report given to NICK Andersen with [address] [place] [address]. Patient to transfer to room 249.
--- NOTE | 2024-07-31 12:36 | PC.NURSE ---
This patient, Rex Cleary, was received from IMU on 07/31/24 at 1236. Patient/family oriented to unit policies and routines
[2024-07-31] MEDS: KCL 20 MEQ/D5/0.45% SOD CHL 1,000 ML 50 ML IV CONT (12:53)
--- NOTE | 2024-07-31 13:41 | PM.IMPN ---
Progress Note: A&P Assessment and Plan (1) Upper gastrointestinal hemorrhage: Code(s): K92.2 - Gastrointestinal hemorrhage, unspecified Status: Acute (2) Alcohol withdrawal: Qualifiers: Complication of substance-induced condition: uncomplicated Qualified Code(s): F10.930 - Alcohol use, unspecified with withdrawal, uncomplicated Code(s): F10.939 - Alcohol use, unspecified with withdrawal, unspecified Status: Acute (3) Alcohol withdrawal seizure: Qualifiers: Complication of substance-induced condition: uncomplicated Qualified Code(s): F10.930 - Alcohol use, unspecified with withdrawal, uncomplicated; R56.9 - Unspecified convulsions Code(s): F10.939 - Alcohol use, unspecified with withdrawal, unspecified; R56.9 - Unspecified convulsions Status: Acute (4) Depression: Code(s): F32.A - Depression, unspecified Status: Acute (5) Anxiety: Code(s): F41.9 - Anxiety disorder, unspecified Status: Acute Assessment and Plan: History of anxiety. Continue home medication (6) Elevated liver enzymes: Code(s): R74.8 - Abnormal levels of other serum enzymes Status: Acute Assessment and Plan: . (7) Chronic abdominal pain: Code(s): R10.9 - Unspecified abdominal pain; G89.29 - Other chronic pain Status: Acute (8) Hypertension: Code(s): I10 - Essential (primary) hypertension Status: Acute Assessment and Plan: P.r.n. IV labetalol at this time Plan GI bleeding Episode of hematemesis Gastritis versus esophagitis versus Karen-Saeed tear Continue PPI Monitor H&H Transfuse if hemoglobin less than 7 GI team on board plan for possible endoscopy tomorrow Seizures Possible secondary to alcohol withdrawal CT head negative for acute abnormalities Monitor Alcohol abuse With withdrawal CIIA protocol Thiamine, folic acid Continue to monitor Depression/anxiety [employer] meds Elevated liver enzymes Ultrasound showed hepatic steatosis Likely secondary to alcohol abuse Continue to monitor DVT prophylaxis - SCD Stress ulcer prophylaxis -PPI Nutrition -clear liquid diet Code Status - Full Code Subjective Date/time seen: 07/31/24 13:41 Interval history: per HPI: 54-year-old man past medical history of alcohol abuse, PTSD anxiety and depression presents the hospital with vomiting blood. Patient states that over the last week he has had increase in his alcohol use due to stress at home. He states that his last drink was on , he was drinking about a 5th a day. Patient states he was trying to stop drinking cold turkey. He states that he had 1 incident of vomiting blood. He states that he has a history of gastric bleed and alcohol withdrawal seizures. In the ED patient had leukocytosis of 23.8, hemoglobin 18.4, potassium of 3.3, carbon dioxide of less than 5, total bilirubin of 1.4, AST is 68, AST of 66, urine toxicology test was positive for amphetamines and cannabinoids, ethanol level was negative. Abdominal ultrasound showed diffuse hepatic steatosis. Head CT showed no acute findings. Patient is on vyvanse for ADHD. Patient had episode of seizure in the ER concern for withdrawal. Patient was admitted to ICU for further management. GI team was consulted. 07/31/24 Patient was seen and examined at bedside. He has been fine. Denies any chest pain, shortness off breath, abdominal pain, nausea vomiting. No more bleeding reported. Continue with PPI. Monitor H&H. GI team on board. Plan for possible EGD tomorrow. Continue with CIWA protocol. Review of Systems Review of Systems: 12 systems were reviewed and are negative except for as per HPI. All systems reviewed & are unremarkable except as noted in HPI and below (HPI) ROS unobtainable: Yes unobtainable due to mental status Exam Narrative: General: Pt is alert awake and in NAD Lungs/Chest: Trachea central Clear BS B/L, No crackles or wheezing. Cardiac: RRR. Normal S1 S2. No murmurs Circulation: Pedal pulses are intact and symmetrical. Abdomen: Normal bowel sounds.. Soft. NT. ND. Extremities: No clubbing, cyanosis or edema. Warm : Harrell in place Neurologic: Follows commands. Moves all 4 extremities PERRL, AO x 3 tremor in both hands Skin: No Rash Objective Data Vital Signs Vital Signs: Vital Signs - 24 hr 07/30/24 13:45 07/30/24 14:16 07/30/24 15:01 Temperature 98.9 F Pulse Rate 87 94 90 Pulse Rate [Monitor] Respiratory Rate 16 20 17 Blood Pressure 116/69 156/99 H Pulse Oximetry 96 96 96 Oxygen Delivery Room Air 07/30/24 16:00 07/30/24 16:00 07/30/24 16:00 Temperature 98 F Pulse Rate 92 Pulse Rate [Monitor] 83 Respiratory Rate 15 Blood Pressure 125/81 Pulse Oximetry 94 Oxygen Delivery 07/30/24 16:00 07/30/24 16:00 07/30/24 18:00 Temperature Pulse Rate 92 92 85 Pulse Rate [Monitor] Respiratory Rate Blood Pressure Pulse Oximetry Oxygen Delivery 07/30/24 18:00 07/30/24 20:00 07/30/24 20:00 Temperature 98.3 F Pulse Rate 88 83 Pulse Rate [Monitor] 82 Respiratory Rate 20 20 Blood Pressure 104/84 111/75 118/72 Pulse Oximetry 97 95 Oxygen Delivery 07/30/24 20:00 07/30/24 20:15 07/30/24 21:06 Temperature Pulse Rate 83 96 Pulse Rate [Monitor] Respiratory Rate 20 Blood Pressure Pulse Oximetry 98 96 Oxygen Delivery Room Air Room Air 07/30/24 22:00 07/30/24 22:29 07/30/24 23:27 Temperature Pulse Rate 69 68 Pulse Rate [Monitor] 87 Respiratory Rate 20 Blood Pressure 107/72 106/70 Pulse Oximetry 95 Oxygen Delivery 07/30/24 23:41 07/31/24 00:00 07/31/24 00:00 Temperature 97.8 F Pulse Rate 76 71 Pulse Rate [Monitor] Respiratory Rate 20 Blood Pressure 107/67 Pulse Oximetry 95 95 Oxygen Delivery Room Air 07/31/24 02:00 07/31/24 02:15 07/31/24 04:00 Temperature 97.7 F Pulse Rate 73 70 65 Pulse Rate [Monitor] Respiratory Rate 20 18 Blood Pressure 94/57 L 110/69 Pulse Oximetry 96 94 Oxygen Delivery 07/31/24 04:00 07/31/24 04:00 07/31/24 04:00 Temperature Pulse Rate 59 L Pulse Rate [Monitor] 56 L Respiratory Rate Blood Pressure 110/69 Pulse Oximetry 100 Oxygen Delivery Room Air 07/31/24 06:08 07/31/24 06:08 07/31/24 08:00 Temperature 97.4 F L Pulse Rate 69 69 60 Pulse Rate [Monitor] Respiratory Rate 18 Blood Pressure 105/71 110/90 Pulse Oximetry 94 100 Oxygen Delivery 07/31/24 08:00 07/31/24 08:00 07/31/24 10:00 Temperature Pulse Rate 58 L 68 Pulse Rate [Monitor] 58 L Respiratory Rate Blood Pressure Pulse Oximetry Oxygen Delivery 07/31/24 11:41 07/31/24 11:41 07/31/24 12:00 Temperature 97.9 F Pulse Rate 78 62 Pulse Rate [Monitor] 78 Respiratory Rate 20 Blood Pressure 110/73 Pulse Oximetry 100 Oxygen Delivery 07/31/24 12:00 Temperature Pulse Rate 62 Pulse Rate [Monitor] Respiratory Rate Blood Pressure Pulse Oximetry Oxygen Delivery Intake/Output Intake/Output: Intake & Output 07/28/24 07/29/24 07/30/24 07/31/24 23:59 23:59 23:59 23:59 Intake Total 2530 1507.8 Output Total 500 1230 Balance 2030 277.8 Meds/Results Medications: Active Medications Generic Name Dose Route Start Last Admin Trade Name Freq PRN Reason Stop Dose Admin Acetaminophen 500 mg 07/30/24 19:19 07/30/24 20:25 Acetaminophen 500 Mg Tablet PO 500 mg Q6H PRN Administration Mild Pain (1-3) or Fever Buspirone HCl 10 mg 07/30/24 23:25 07/31/24 09:06 Buspirone Hcl 10 Mg Tablet PO 10 mg BID YURY Administration Chlordiazepoxide HCl 25 mg 07/31/24 12:00 07/31/24 11:39 Chlordiazepoxide (*Crx) 25 Mg Capsule PO 25 mg Q6HR YURY Administration Clonazepam 1 mg 07/31/24 08:04 07/31/24 09:23 Clonazepam (*Crx) 0.5 Mg Tablet PO 1 mg TID PRN Administration Anxiety Escitalopram Oxalate 20 mg 07/31/24 09:00 07/31/24 09:05 Escitalopram Oxalate 10 Mg Tablet PO 20 mg DAILY YURY Administration Folic Acid 1 mg 07/31/24 09:00 07/31/24 09:06 Folic Acid 1 Mg/0.2 Ml Inj IV PUSH 1 mg QAM YURY Administration Potassium Chloride/Dextrose/Sod Cl 1,000 mls @ 50 mls/hr 07/30/24 23:10 07/31/24 12:53 Kcl 20 Meq/D5/0.45% Sod Chl IV CONT 50 mls/hr .Q20H YURY Administration Labetalol HCl 20 mg 07/30/24 12:40 Labetalol Hcl Inj 100 Mg/20 Ml Vial IV PUSH Q4H PRN SBP > 160 and HR> 60 -1st choice Lorazepam 4 mg 07/30/24 11:48 Lorazepam Inj (*Crx) 2 Mg/Ml Vial IV PUSH Q1H PRN Seizure Lorazepam 1 mg 07/30/24 12:33 Lorazepam Inj (*Crx) 2 Mg/Ml Vial IV PUSH Q1H PRN CIWA 8-14 Lorazepam 2 mg 07/30/24 12:33 07/30/24 20:32 Lorazepam Inj (*Crx) 2 Mg/Ml Vial IV PUSH 2 mg Q1H PRN Administration CIWA Score 15 or more Nicotine 1 patch 07/31/24 09:00 07/31/24 09:05 Nicotine (*Pbkc) 21 Mg Patch TRANSDERM 1 patch DAILY YURY Administration Ondansetron HCl 4 mg 07/30/24 12:32 Ondansetron Inj 4 Mg/2 Ml Vial IV PUSH Q4H PRN Nausea Pantoprazole Sodium 40 mg 07/30/24 21:00 07/31/24 09:06 Pantoprazole Sodium Iv 40 Mg Vial IV PUSH 40 mg Q12HR YURY Administration Thiamine HCl 100 mg 07/30/24 09:00 07/31/24 09:06 Thiamine Hcl 200 Mg/2 Ml Vial IV PUSH 100 mg QAM YURY Administration Radiology Results: ITS Impressions Head CT 07/30/24 12:12 IMPRESSION: 1. Normal head CT. Abdomen Ultrasound 07/30/24 12:24 IMPRESSION: 1. Diffuse hepatic steatosis. 2. Normal gallbladder and no intra or extra hepatic biliary ductal dilation. Labs Labs: Laboratory Results - last 24 hr 07/30/24 07/30/24 07/30/24 16:08 16:11 16:37 WBC RBC Hgb 15.3 D Hct 43.5 MCV MCH MCHC RDW Plt Count MPV Immature Gran % (Auto) Neut % (Auto) Lymph % (Auto) Spencer % (Auto) Eos % (Auto) Baso % (Auto) Lymph # (Auto) Spencer # (Auto) Eos # (Auto) Baso # (Auto) Abs Immat Gran (auto) Absolute Neuts (auto) Absolute Nucleated RBC Nucleated RBC % Sodium Potassium Chloride Carbon Dioxide Anion Gap BUN Creatinine Estim Creat Clear Calc Estimated GFR Glucose POC Capillary Glucose 128 H Calcium Magnesium Total Bilirubin AST ALT Alkaline Phosphatase Total Protein Albumin Nasal MRSA (PCR) Not detected 07/30/24 07/30/24 07/30/24 18:35 22:56 23:25 WBC RBC Hgb 14.7 Hct 42.6 MCV MCH MCHC RDW Plt Count MPV Immature Gran % (Auto) Neut % (Auto) Lymph % (Auto) Spencer % (Auto) Eos % (Auto) Baso % (Auto) Lymph # (Auto) Spencer # (Auto) Eos # (Auto) Baso # (Auto) Abs Immat Gran (auto) Absolute Neuts (auto) Absolute Nucleated RBC Nucleated RBC % Sodium Potassium Chloride Carbon Dioxide Anion Gap BUN Creatinine Estim Creat Clear Calc Estimated GFR Glucose POC Capillary Glucose 93 85 Calcium Magnesium Total Bilirubin AST ALT Alkaline Phosphatase Total Protein Albumin Nasal MRSA (PCR) 07/31/24 07/31/24 07/31/24 03:42 09:43 11:36 WBC 13.1 H RBC 4.48 L Hgb 14.8 15.2 Hct 42.7 44.1 MCV 95.3 MCH 33.0 MCHC 34.7 RDW 13.5 Plt Count 149 L MPV 9.9 Immature Gran % (Auto) 0.4 Neut % (Auto) 74.0 H Lymph % (Auto) 16.2 L Spencer % (Auto) 8.1 Eos % (Auto) 1.0 Baso % (Auto) 0.3 Lymph # (Auto) 2.11 Spencer # (Auto) 1.1 H Eos # (Auto) 0.1 Baso # (Auto) 0.0 Abs Immat Gran (auto) 0.05 H Absolute Neuts (auto) 9.7 H Absolute Nucleated RBC 0.000 Nucleated RBC % 0.0 Sodium 136 L Potassium 3.5 Chloride 103 Carbon Dioxide 27 Anion Gap 6 BUN 9 Creatinine 0.84 Estim Creat Clear Calc 83 Estimated GFR > 60 Glucose 91 POC Capillary Glucose 113 H Calcium 8.4 Magnesium 2.2 Total Bilirubin 1.5 H AST 42 ALT 42 Alkaline Phosphatase 49 Total Protein 6.0 L Albumin 3.6 Nasal MRSA (PCR) Quality VTE Prophylaxis VTE prophylaxis: mechanical ordered
--- NOTE | 2024-07-31 14:27 | P.CONGI_ITS ---
Assessment and Plan Assessment and plan (1) Upper gastrointestinal hemorrhage: Code(s): K92.2 - Gastrointestinal hemorrhage, unspecified Status: Acute Assessment and Plan: no more episodes h/h normal probably could have been esophagitis, mwt, gastritis, etc protonix egd in am (2) Hematemesis: Code(s): K92.0 - Hematemesis Status: Acute Assessment and Plan: no more episodes (3) Alcohol withdrawal seizure: Qualifiers: Complication of substance-induced condition: uncomplicated Qualified Code(s): F10.930 - Alcohol use, unspecified with withdrawal, uncomplicated; R56.9 - Unspecified convulsions Code(s): F10.939 - Alcohol use, unspecified with withdrawal, unspecified; R56.9 - Unspecified convulsions Status: Acute Assessment and Plan: ciwa protocol thiamine, nutrition support (4) Chronic abdominal pain: Code(s): R10.9 - Unspecified abdominal pain; G89.29 - Other chronic pain Status: Acute (5) Elevated liver enzymes: Code(s): R74.8 - Abnormal levels of other serum enzymes Status: Acute Assessment and Plan: from alcohol use (6) Anxiety: Code(s): F41.9 - Anxiety disorder, unspecified Status: Acute (7) Alcohol withdrawal: Qualifiers: Complication of substance-induced condition: uncomplicated Qualified Code(s): F10.930 - Alcohol use, unspecified with withdrawal, uncomplicated Code(s): F10.939 - Alcohol use, unspecified with withdrawal, unspecified Status: Acute (8) Hypokalemia: Code(s): E87.6 - Hypokalemia Status: Acute Assessment and Plan: treated GI Consult Note Consult date/time: 07/31/24 14:27 Reason for consult: hematemesis, alcohol abuse HPI: Rex Cleary is a 54 year old male with past medical history of alcohol abuse, degenerate joint disease, depression, anxiety and tobacco abuse came to ER after one episode of vomiting blood. He states he has been drinking a pt of vodka every day for last 1 week after he had a misunderstanding with his and the had emesis after having abdominal discomfort. He says that had egd about 3 years ago, denies using nsaid's. ER workup potassium was low at 3.3, AST and ALT were mildly elevated and bilirubin was 1.4. White count was 23.8 and alcohol level was less than 10. During evaluation patient had a brief generalized tonic clonic seizure. Hgb 18 on admission after fluids down to 15. He is doing great now. Review of Systems 2 Constitutional: Constitutional: Denies chills Eyes: Eyes: Denies blurry vision ENT: Reports Normal hearing present Cardiovascular: Cardiovascular: Denies chest pain Respiratory: Respiratory: Denies cough Gastrointestinal: Gastrointestinal: Reports abdominal pain and Reports vomiting Genitourinary: Genitourinary: Denies dysuria Musculoskeletal: Musculoskeletal: Denies neck pain Integumentary/Breasts: Skin/Breast: Denies dry skin Neurologic: Comments: seizure x1 Psychiatric: Psychiatric: Reports anxiety [facility] Past Medical History Medical History (Updated 07/31/24 @ 14:30 by Tyler Horton MD) Hypokalemia Hematemesis Pre-hypertension PTSD (post-traumatic stress disorder) Anxiety Depression Slipped intervertebral disc Arthritis Family History Family History Mother Family history of bipolar disorder Sibling Family history of bipolar disorder Father Family history of chronic obstructive pulmonary disease Patient's father is Social History Social History (Updated 07/30/24 @ 12:41 by Liam Jernigan MD) Social History: He has been drinking 1 pint of vodka every day for last 7 days, he chews tobacco and smokes marijuana. Denies any other drug use. Works at [employer] Years smoked: 26 Smoking status: Former smoker Tobacco type: cigarettes Smokeless tobacco user: chewing tobacco Smoking end date: 04/27/09 Additional smoking assessment comments: Current chewing tobacco use. Alcohol intake: current Substance use: current Substance use type: marijuana Last use: Do You Feel Safe in your Home?: Yes Lack of Transportation: No Lack of Food: Never True Current Housing: I Have Housing Concerned About Future Housing: No Difficulty Paying Gas/Electric Bills: No Difficulty Paying for Meds: No Currently Unemployed: No Education: Decline to Answer Difficulty w/ Childcare or Family Care: No Spiritual care concerns: No Meds Home Medications and Allergies Home Medications ?Medication ?Instructions ?Recorded ?Confirmed ?Type buspirone 10 mg tablet 10 mg PO BID 07/30/24 07/30/24 History clonazepam 1 mg tablet 1 mg PO TID PRN anxiety 07/30/24 07/31/24 History escitalopram oxalate 20 mg tablet 20 mg PO DAILY 07/30/24 07/30/24 History lisdexamfetamine 20 mg capsule 40 mg PO QAM 07/30/24 07/30/24 History mirtazapine 30 mg tablet 30 mg PO HS appetite, depression. 07/30/24 07/30/24 History trazodone 100 mg tablet 100 mg PO HS 07/30/24 07/30/24 History Allergies Allergy/AdvReac Type Severity Reaction Status Date / Time erythromycin base AdvReac Nausea Verified 07/30/24 15:49 Vital Signs Vital Signs - 24 hr 07/30/24 15:01 07/30/24 16:00 07/30/24 16:00 Temperature 98.9 F 98 F Pulse Rate 90 92 Pulse Rate [Monitor] Respiratory Rate 17 15 Blood Pressure 156/99 H 125/81 Pulse Oximetry 96 94 Oxygen Delivery 07/30/24 16:00 07/30/24 16:00 07/30/24 16:00 Temperature Pulse Rate 92 92 Pulse Rate [Monitor] 83 Respiratory Rate Blood Pressure Pulse Oximetry Oxygen Delivery 07/30/24 18:00 07/30/24 18:00 07/30/24 20:00 Temperature 98.3 F Pulse Rate 85 88 83 Pulse Rate [Monitor] Respiratory Rate 20 20 Blood Pressure 104/84 111/75 Pulse Oximetry 97 95 Oxygen Delivery 07/30/24 20:00 07/30/24 20:00 07/30/24 20:15 Temperature Pulse Rate 83 Pulse Rate [Monitor] 82 Respiratory Rate Blood Pressure 118/72 Pulse Oximetry 98 Oxygen Delivery Room Air 07/30/24 21:06 07/30/24 22:00 07/30/24 22:29 Temperature Pulse Rate 96 69 68 Pulse Rate [Monitor] Respiratory Rate 20 20 Blood Pressure 107/72 Pulse Oximetry 96 95 Oxygen Delivery Room Air 07/30/24 23:27 07/30/24 23:41 07/31/24 00:00 Temperature Pulse Rate 76 Pulse Rate [Monitor] 87 Respiratory Rate Blood Pressure 106/70 Pulse Oximetry 95 Oxygen Delivery Room Air 07/31/24 00:00 07/31/24 02:00 07/31/24 02:15 Temperature 97.8 F Pulse Rate 71 73 70 Pulse Rate [Monitor] Respiratory Rate 20 20 Blood Pressure 107/67 94/57 L Pulse Oximetry 95 96 Oxygen Delivery 07/31/24 04:00 07/31/24 04:00 07/31/24 04:00 Temperature 97.7 F Pulse Rate 65 Pulse Rate [Monitor] 56 L Respiratory Rate 18 Blood Pressure 110/69 110/69 Pulse Oximetry 94 100 Oxygen Delivery Room Air 07/31/24 04:00 07/31/24 06:08 07/31/24 06:08 Temperature Pulse Rate 59 L 69 69 Pulse Rate [Monitor] Respiratory Rate Blood Pressure 105/71 Pulse Oximetry 94 Oxygen Delivery 07/31/24 08:00 07/31/24 08:00 07/31/24 08:00 Temperature 97.4 F L Pulse Rate 60 58 L Pulse Rate [Monitor] 58 L Respiratory Rate 18 Blood Pressure 110/90 Pulse Oximetry 100 Oxygen Delivery 07/31/24 10:00 07/31/24 11:41 07/31/24 11:41 Temperature 97.9 F Pulse Rate 68 78 Pulse Rate [Monitor] 78 Respiratory Rate 20 Blood Pressure 110/73 Pulse Oximetry 100 Oxygen Delivery 07/31/24 12:00 07/31/24 12:00 Temperature Pulse Rate 62 62 Pulse Rate [Monitor] Respiratory Rate Blood Pressure Pulse Oximetry Oxygen Delivery Exam 2 Const: General: comfortable and no acute distress HENMT: Face/Nose/Sinus: Normal nares present Eyes: General: appearance normal, both eyes and all related structures Neck: Neck: no JVD Resp: Auscultation: clear to auscultation bilaterally Cardio: Rate: regular rate Rhythm: regular rhythm GI: Inspection: non-distended GI Palp: Yes Soft to palpation Skin: General skin exam: normal color Neuro: Speech: normal speech Extrem: General: normal to inspection Psych: Mental Status: mental status grossly normal Results Labs 07/31/24 09:43 07/31/24 03:42 Labs: Short CBC 07/30/24 07/30/24 07/31/24 Range/Units 16:37 22:56 03:42 WBC 13.1 H (4.5-10.0) K/mm3 Hgb 15.3 D 14.7 14.8 (14.0-18.0) g/dL Hct 43.5 42.6 42.7 (42.0-52.0) % Plt Count 149 L (150-375) k/mm3 07/31/24 Range/Units 09:43 WBC (4.5-10.0) K/mm3 Hgb 15.2 (14.0-18.0) g/dL Hct 44.1 (42.0-52.0) % Plt Count (150-375) k/mm3 BMP 07/31/24 03:42 Sodium 136 L Potassium 3.5 Chloride 103 Carbon Dioxide 27 BUN 9 Creatinine 0.84 Glucose 91 Calcium 8.4 Liver Function 07/31/24 Range/Units 03:42 Total Bilirubin 1.5 H (0.2-1.3) mg/dL AST 42 (17-59) U/L ALT 42 (6-50) U/L Alkaline Phosphatase 49 (38-126) U/L Albumin 3.6 (3.5-5.1) g/dL
[2024-07-31 15:54] LABS: Hematocrit 42.3 % (42.0-52.0); Hemoglobin 14.7 g/dL (14.0-18.0)
[2024-07-31 15:59] LABS: GGT 16 U/L (3-95)
[2024-07-31 18:46] LABS: Glucose Point of Care 126 mg/dl (65-105)
[2024-07-31 21:59] LABS: Hematocrit 41.5 % (42.0-52.0); Hemoglobin 14.1 g/dL (14.0-18.0)
[2024-08-01] VITALS (8 sets, daily range): BP systolic 96–110; BP diastolic 53–68; PULSE 53–76; RESP 16–21; TEMP 36.6–37; O2SAT 97–100
[2024-08-01 00:21] LABS: Glucose Point of Care 88 mg/dl (65-105)
[2024-08-01] MEDS: chlordiazePOXIDE (*CRX) 25 MG CAPSULE PO (05:00)
[2024-08-01 05:40] LABS: Basophils Absolute Auto 0.1 K/mm3 (0.0-0.1); Basophils Percent Auto 0.5 % (0.2-1.2); Eosinophils Absolute Auto 0.2 K/mm3 (0-0.3); Eosinophils Percent Auto 1.5 % (0-4.4); Hematocrit 41.8 % (42.0-52.0); Hemoglobin 14.3 g/dL (14.0-18.0); Immature Granulocyte Absolute 0.06 K/mm3 (0.00-0.031); Immature Granulocyte Percent A 0.6 % (0-0.5); Lymphocytes Absolute Auto 1.54 K/mm3 (0.9-3.2); Lymphocytes Percent Auto 14.2 % (18.3-44.2); Mean Corpuscular HGB Conc 34.2 g/dl (32-36); Mean Corpuscular Hemoglobin 33.3 pg (26-34); Mean Corpuscular Volume 97.2 fl (80-100); Mean Platelet Volume 10.4 fl (7.4-10.4); Monocytes Absolute Auto 0.7 K/mm3 (0.1-0.6); Monocytes Percent Auto 6.5 % (2.6-8.5); Neutrophils Absolute Auto 8.3 K/mm3 (1.3-6.7); Neutrophils Percent Auto 76.7 % (45.5-73.1); Platelet Count Result 123 k/mm3 (150-375); Red Cell Distribution Width 13.7 % (11.5-14.5); White Blood Count 10.8 K/mm3 (4.5-10.0)
[2024-08-01 05:47] LABS: Alanine Aminotransferase 37 U/L (6-50); Albumin Level 3.4 g/dL (3.5-5.1); Alkaline Phosphatase 53 U/L (38-126); Anion Gap 5 mmol/L (4-12); Aspartate Amino Transferase 30 U/L (17-59); Bilirubin,Total 1.2 mg/dL (0.2-1.3); Blood Urea Nitrogen 8 mg/dL (9-20); Calcium 8.4 mg/dL (8.4-10.2); Carbon Dioxide 27 mmol/L (22-30); Chloride 105 mmol/L (98-107); Estimated CRCL calculation 79 ml/min; Estimated Glomerular Filt Rate > 60; Glucose 97 mg/dL (65-110); Magnesium 1.8 mg/dL (1.6-2.3); Potassium 3.7 mmol/L (3.4-5.0); Sodium 137 mmol/L (137-145)
[2024-08-01 05:50] LABS: Glucose Point of Care 110 mg/dl (65-105)
[2024-08-01] MEDS: THIAMINE HCL 200 MG/2 ML VIAL 100 MG IV PUSH (09:12)
[2024-08-01] MEDS: PANTOPRAZOLE SODIUM IV 40 MG VIAL IV PUSH (09:12)
[2024-08-01] MEDS: NICOTINE (*PBKC) 21 MG PATCH 1 PATCH TRANSDERM (09:13)
[2024-08-01] MEDS: busPIRone HCL 10 MG TABLET PO (09:13)
[2024-08-01] MEDS: ESCITALOPRAM OXALATE 10 MG TABLET 20 MG PO (09:13)
[2024-08-01] MEDS: FOLIC ACID 1 MG/0.2 ML INJ IV PUSH (09:29)
[2024-08-01] MEDS: clonazePAM (*CRX) 0.5 MG TABLET 1 MG PO (09:29)
[2024-08-01] MEDS: KCL 20 MEQ/D5/0.45% SOD CHL 1,000 ML 50 ML IV CONT (09:36)
[2024-08-01 10:35] LABS: Hematocrit 42.6 % (42.0-52.0); Hemoglobin 14.3 g/dL (14.0-18.0)
[2024-08-01] MEDS: LACTATED RINGERS 1,000 ML 150 ML IV CONT (10:50)
--- NOTE | 2024-08-01 11:51 | WPDANESEPPF ---
Anes - Initial Pre Proc Eval Procedure: Operation Date: 08/01/24 14:45 Proposed Procedures p Esophagogastroduodenoscopy - Tyler Horton MD Date/Time: 08/01/24 11:51 Surgeon: Martha Weathers MD Pre Op Diagnosis: alcohol withdrawl,seizure,upper gi bleed Patient Data Age: 54 Gender: M Height: 1.78 m Weight: 68.9 kg Last Vital Signs Temp 97.8 F 08/01/24 10:48 Pulse 54 L 08/01/24 10:48 Resp 16 08/01/24 10:48 BP 108/65 08/01/24 10:48 Pulse Ox 99 08/01/24 10:48 O2 Del Method Room Air 08/01/24 10:48 O2 Flow Rate 2 07/30/24 10:30 Allergies Allergy/AdvReac Type Severity Reaction Status Date / Time erythromycin base AdvReac Nausea Verified 08/01/24 10:46 Home Medications ?Medication ?Instructions ?Recorded ?Confirmed ?Type buspirone 10 mg tablet 10 mg PO BID 07/30/24 07/30/24 History clonazepam 1 mg tablet 1 mg PO TID PRN anxiety 07/30/24 07/31/24 History escitalopram oxalate 20 mg tablet 20 mg PO DAILY 07/30/24 07/30/24 History lisdexamfetamine 20 mg capsule 40 mg PO QAM 07/30/24 07/30/24 History mirtazapine 30 mg tablet 30 mg PO HS appetite, depression. 07/30/24 07/30/24 History trazodone 100 mg tablet 100 mg PO HS 07/30/24 07/30/24 History Laboratory Tests 07/30/24 07/31/24 07/31/24 12:30 15:46 18:44 WBC RBC Hgb 14.7 g/dL (14.0-18.0) Hct 42.3 % (42.0-52.0) MCV MCH MCHC RDW Plt Count MPV Immature Gran % (Auto) Neut % (Auto) Lymph % (Auto) [place] % (Auto) Eos % (Auto) Baso % (Auto) Lymph # (Auto) [place] # (Auto) Eos # (Auto) Baso # (Auto) Abs Immat Gran (auto) Absolute Neuts (auto) Absolute Nucleated RBC Nucleated RBC % Sodium Potassium Chloride Carbon Dioxide Anion Gap BUN Creatinine Estim Creat Clear Calc Estimated GFR Glucose POC Capillary Glucose 126 H mg/dl (65-105) Calcium Magnesium Total Bilirubin GGT 16 U/L (3-95) AST ALT Alkaline Phosphatase Total Protein Albumin 07/31/24 08/01/24 08/01/24 21:55 00:17 04:51 WBC RBC Hgb 14.1 g/dL (14.0-18.0) Hct 41.5 L % (42.0-52.0) MCV MCH MCHC RDW Plt Count MPV Immature Gran % (Auto) Neut % (Auto) Lymph % (Auto) [place] % (Auto) Eos % (Auto) Baso % (Auto) Lymph # (Auto) [place] # (Auto) Eos # (Auto) Baso # (Auto) Abs Immat Gran (auto) Absolute Neuts (auto) Absolute Nucleated RBC Nucleated RBC % Sodium Potassium Chloride Carbon Dioxide Anion Gap BUN Creatinine Estim Creat Clear Calc Estimated GFR Glucose POC Capillary Glucose 88 mg/dl 110 H mg/dl (65-105) (65-105) Calcium Magnesium Total Bilirubin GGT AST ALT Alkaline Phosphatase Total Protein Albumin 08/01/24 08/01/24 05:03 09:59 WBC 10.8 H K/mm3 (4.5-10.0) RBC 4.30 L M/mm3 (4.6-6.20) Hgb 14.3 g/dL 14.3 g/dL (14.0-18.0) (14.0-18.0) Hct 41.8 L % 42.6 % (42.0-52.0) (42.0-52.0) MCV 97.2 fl (80-100) MCH 33.3 pg (26-34) MCHC 34.2 g/dl (32-36) RDW 13.7 % (11.5-14.5) Plt Count 123 L k/mm3 (150-375) MPV 10.4 fl (7.4-10.4) Immature Gran % (Auto) 0.6 H % (0-0.5) Neut % (Auto) 76.7 H % (45.5-73.1) Lymph % (Auto) 14.2 L % (18.3-44.2) [place] % (Auto) 6.5 % (2.6-8.5) Eos % (Auto) 1.5 % (0-4.4) Baso % (Auto) 0.5 % (0.2-1.2) Lymph # (Auto) 1.54 K/mm3 (0.9-3.2) [place] # (Auto) 0.7 H K/mm3 (0.1-0.6) Eos # (Auto) 0.2 K/mm3 (0-0.3) Baso # (Auto) 0.1 K/mm3 (0.0-0.1) Abs Immat Gran (auto) 0.06 H K/mm3 (0.00-0.031) Absolute Neuts (auto) 8.3 H K/mm3 (1.3-6.7) Absolute Nucleated RBC 0.000 K/mm3 (0.0-0.012) Nucleated RBC % 0.0 % (0.0-0.2) Sodium 137 mmol/L (137-145) Potassium 3.7 mmol/L (3.4-5.0) Chloride 105 mmol/L (98-107) Carbon Dioxide 27 mmol/L (22-30) Anion Gap 5 mmol/L (4-12) BUN 8 L mg/dL (9-20) Creatinine 0.93 mg/dL (0.7-1.3) Estim Creat Clear Calc 79 ml/min Estimated GFR > 60 (59 - ) Glucose 97 mg/dL (65-110) POC Capillary Glucose Calcium 8.4 mg/dL (8.4-10.2) Magnesium 1.8 mg/dL (1.6-2.3) Total Bilirubin 1.2 mg/dL (0.2-1.3) GGT AST 30 U/L (17-59) ALT 37 U/L (6-50) Alkaline Phosphatase 53 U/L (38-126) Total Protein 6.0 L g/dL (6.3-8.2) Albumin 3.4 L g/dL (3.5-5.1) Patient hx anesthesia problems: none Family hx anesthesia problems: none Results Review: All pre-operative results and documents have been reviewed as part of the pre-operative evaluation. [facility] Past Medical History Medical History (Updated 07/31/24 @ 14:30 by Tyler Horton MD) Hypokalemia Hematemesis Pre-hypertension PTSD (post-traumatic stress disorder) Anxiety Depression Slipped intervertebral disc Arthritis Family History Family History Mother Family history of bipolar disorder Sibling Family history of bipolar disorder Father Family history of chronic obstructive pulmonary disease Patient's father is Social History Social History (Updated 07/30/24 @ 12:41 by Liam Jernigan MD) Social History: He has been drinking 1 pint of vodka every day for last 7 days, he chews tobacco and smokes marijuana. Denies any other drug use. Works at [employer] Years smoked: 26 Smoking status: Former smoker Tobacco type: cigarettes Smokeless tobacco user: chewing tobacco Smoking end date: 04/27/09 Additional smoking assessment comments: Current chewing tobacco use. Alcohol intake: current Substance use: current Substance use type: marijuana Last use: Do You Feel Safe in your Home?: Yes Lack of Transportation: No Lack of Food: Never True Current Housing: I Have Housing Concerned About Future Housing: No Difficulty Paying Gas/Electric Bills: No Difficulty Paying for Meds: No Currently Unemployed: No Education: Decline to Answer Difficulty w/ Childcare or Family Care: No Spiritual care concerns: No Anes - Eval Final PreProcedure Day of Procedure 08/01/24 11:51 Patient weight: normal Heart: regular rate and rhythm Lungs: clear to auscultation Airway: Mallampati scale class II Neurological: alert and oriented Last oral intake: >/= 8 hours ASA classification: III Emergent: no Anesthetic plan: proceed Anesthesia type and monitoring: general GIVS and standard monitoring Results Review: All pre-operative results and documents have been reviewed as part of the pre-operative evaluation. Informed Consent: The patient's anesthetic plan and its attendant risks and benefits were discussed with the patient/family/POA. Questions were solicited and answers provided to the satisfaction of the patient/family/POA.
--- NOTE | 2024-08-01 13:35 | P.DS_ITS ---
DS: Admitting Diagnosis Discharge Date 08/01/24 Admitting Diagnosis Hematemesis: Withdrawal Seizure DS: Discharge Diagnosis Discharge Diagnosis (1) Upper gastrointestinal hemorrhage: Code(s): K92.2 - Gastrointestinal hemorrhage, unspecified Status: Acute (2) Alcohol withdrawal: Qualifiers: Complication of substance-induced condition: uncomplicated Qualified Code(s): F10.930 - Alcohol use, unspecified with withdrawal, uncomplicated Code(s): F10.939 - Alcohol use, unspecified with withdrawal, unspecified Status: Acute (3) Alcohol withdrawal seizure: Qualifiers: Complication of substance-induced condition: uncomplicated Qualified Code(s): F10.930 - Alcohol use, unspecified with withdrawal, uncomplicated; R56.9 - Unspecified convulsions Code(s): F10.939 - Alcohol use, unspecified with withdrawal, unspecified; R56.9 - Unspecified convulsions Status: Acute (4) Depression: Code(s): F32.A - Depression, unspecified Status: Acute (5) Anxiety: Code(s): F41.9 - Anxiety disorder, unspecified Status: Acute Assessment and Plan: History of anxiety. Continue home medication (6) Elevated liver enzymes: Code(s): R74.8 - Abnormal levels of other serum enzymes Status: Acute Assessment and Plan: . (7) Chronic abdominal pain: Code(s): R10.9 - Unspecified abdominal pain; G89.29 - Other chronic pain Status: Acute (8) Hypertension: Code(s): I10 - Essential (primary) hypertension Status: Acute Assessment and Plan: P.r.n. IV labetalol at this time Plan GI bleeding Episode of hematemesis EGD unremarkable Continue PPI H&H stable Seizures Possible secondary to alcohol withdrawal CT head negative for acute abnormalities Monitor Alcohol abuse With withdrawal Encourage cessation Thiamine, folic acid Continue to monitor Depression/anxiety [employer] meds Elevated liver enzymes Ultrasound showed hepatic steatosis Likely secondary to alcohol abuse Encourage cessation Continue to monitor DVT prophylaxis - SCD Stress ulcer prophylaxis -PPI Nutrition -clear liquid diet Code Status - Full Code DS: Summary Hospital Course Hospital Course: per HPI: 54-year-old man past medical history of alcohol abuse, PTSD anxiety and depression presents the hospital with vomiting blood. Patient states that over the last week he has had increase in his alcohol use due to stress at home. He states that his last drink was on , he was drinking about a 5th a day. Patient states he was trying to stop drinking cold turkey. He states that he had 1 incident of vomiting blood. He states that he has a history of gastric bleed and alcohol withdrawal seizures. In the ED patient had leukocytosis of 23.8, hemoglobin 18.4, potassium of 3.3, carbon dioxide of less than 5, total bilirubin of 1.4, AST is 68, AST of 66, urine toxicology test was positive for amphetamines and cannabinoids, ethanol level was negative. Abdominal ultrasound showed diffuse hepatic steatosis. Head CT showed no acute findings. Patient is on vyvanse for ADHD. Patient had episode of seizure in the ER concern for withdrawal. Patient was admitted to ICU for further management. GI team was consulted. 07/31/24 Transfer out of ICU. GI team on board. Plan for possible EGD tomorrow. Continue with CIWA protocol. 08/01/24 Patient was seen examined at bedside. History of PI. Denies any chest pain, shortness of breath, nausea vomiting. Denies any bleeding. Hemoglobin is stable. Endoscopy unremarkable. CIWA score 1 Status at Discharge Overall status at discharge: patient is back to baseline Time Spent with Patient Time attestation: Total time spent providing and/or coordinating discharge services: Exam Narrative: General: Pt is alert awake and in NAD Lungs/Chest: Trachea central Clear BS B/L, No crackles or wheezing. Cardiac: RRR. Normal S1 S2. No murmurs Circulation: Pedal pulses are intact and symmetrical. Abdomen: Normal bowel sounds.. Soft. NT. ND. Extremities: No clubbing, cyanosis or edema. Warm : Harrell in place Neurologic: Follows commands. Moves all 4 extremities PERRL, AO x 3 tremor in both hands Skin: No Rash DS: Data Data Completed and Pending Labs on day of discharge: Labs from last 24 hours 08/01/24 08/01/24 08/01/24 09:59 05:03 04:51 WBC 10.8 H RBC 4.30 L Hgb 14.3 14.3 Hct 42.6 41.8 L MCV 97.2 MCH 33.3 MCHC 34.2 RDW 13.7 Plt Count 123 L MPV 10.4 Immature Gran % (Auto) 0.6 H Neut % (Auto) 76.7 H Lymph % (Auto) 14.2 L [place] % (Auto) 6.5 Eos % (Auto) 1.5 Baso % (Auto) 0.5 Lymph # (Auto) 1.54 [place] # (Auto) 0.7 H Eos # (Auto) 0.2 Baso # (Auto) 0.1 Abs Immat Gran (auto) 0.06 H Absolute Neuts (auto) 8.3 H Absolute Nucleated RBC 0.000 Nucleated RBC % 0.0 Sodium 137 Potassium 3.7 Chloride 105 Carbon Dioxide 27 Anion Gap 5 BUN 8 L Creatinine 0.93 Estim Creat Clear Calc 79 Estimated GFR > 60 Glucose 97 POC Capillary Glucose 110 H Calcium 8.4 Magnesium 1.8 Total Bilirubin 1.2 GGT AST 30 ALT 37 Alkaline Phosphatase 53 Total Protein 6.0 L Albumin 3.4 L 08/01/24 07/31/24 07/31/24 00:17 21:55 18:44 WBC RBC Hgb 14.1 Hct 41.5 L MCV MCH MCHC RDW Plt Count MPV Immature Gran % (Auto) Neut % (Auto) Lymph % (Auto) [place] % (Auto) Eos % (Auto) Baso % (Auto) Lymph # (Auto) [place] # (Auto) Eos # (Auto) Baso # (Auto) Abs Immat Gran (auto) Absolute Neuts (auto) Absolute Nucleated RBC Nucleated RBC % Sodium Potassium Chloride Carbon Dioxide Anion Gap BUN Creatinine Estim Creat Clear Calc Estimated GFR Glucose POC Capillary Glucose 88 126 H Calcium Magnesium Total Bilirubin GGT AST ALT Alkaline Phosphatase Total Protein Albumin 07/31/24 07/30/24 15:46 12:30 WBC RBC Hgb 14.7 Hct 42.3 MCV MCH MCHC RDW Plt Count MPV Immature Gran % (Auto) Neut % (Auto) Lymph % (Auto) [place] % (Auto) Eos % (Auto) Baso % (Auto) Lymph # (Auto) [place] # (Auto) Eos # (Auto) Baso # (Auto) Abs Immat Gran (auto) Absolute Neuts (auto) Absolute Nucleated RBC Nucleated RBC % Sodium Potassium Chloride Carbon Dioxide Anion Gap BUN Creatinine Estim Creat Clear Calc Estimated GFR Glucose POC Capillary Glucose Calcium Magnesium Total Bilirubin GGT 16 AST ALT Alkaline Phosphatase Total Protein Albumin Discharge Plan Discharge Consulting providers: Tyler Horton Discharging Clinician: Martha Weathers Patient Disposition: Home Activity: no driving Diet: as tolerated Discharge Instructions: Please check your blood pressure and heart rate regularly and report to PCP Quit alcohol/smoking Please no driving until follow-up with PCP and discuss with your PCP. you had episode of seizure in the ER likely withdrawal. Patient Instructions: Antibiotic Form Patient Language: [place] Stand Alone Forms: General Discharge Information Follow-up/Referrals: Stephany,Chery Yi MD [Primary Care Provider] - Discharge Medications: New folic acid 20 mg capsule 20 mg PO DAILY Qty: 30 0RF thiamine HCl (vitamin B1) 100 mg capsule 100 mg PO DAILY Qty: 30 0RF Continued buspirone 10 mg tablet 10 mg PO BID clonazepam 1 mg tablet 1 mg PO TID PRN (Reason: anxiety) lisdexamfetamine 20 mg capsule 40 mg PO QAM trazodone 100 mg tablet 100 mg PO HS Rx Instructions: Take 100 mg- 200 mg at HS for sleep aid. escitalopram oxalate 20 mg tablet 20 mg PO DAILY mirtazapine 30 mg tablet 30 mg PO HS Date of admission: 07/30/24 12:32 Primary Care Provider: BiancaChery Admitting Provider: Martha Weathers Attending physician on admission: Martha Weathers Condition: Stable Quality VTE Prophylaxis VTE prophylaxis: mechanical ordered
== END 2024-08-01 15:30 | disposition home or self-care (01) | DRG 897 ==
LOC: ANHED 11:36 → ANHICU 13:37 → ANH2MED 07-31 12:15
PROVIDERS: Internal Medicine; Internal Medicine Gastroenterology; Admitting Provider Internal Medicine; Emergency Provider Family Medicine; PCP Family Medicine Sports Medicine; Visit Provider Internal Medicine
PROC: 0DJ08ZZ Inspection of Upper Intestinal Tract, Via Natural or Artificial Opening Endoscopic (ICD-10-PCS; principal; 2024-08-01 14:45)
DX: F10.139 Alcohol abuse with withdrawal, unspecified (principal); G40.89 Other seizures; K92.0 Hematemesis; M19.90 Unspecified osteoarthritis, unspecified site; K70.10 Alcoholic hepatitis without ascites; K70.9 Alcoholic liver disease, unspecified; K70.0 Alcoholic fatty liver; F43.10 Post-traumatic stress disorder, unspecified; F41.9 Anxiety disorder, unspecified; F32.A Depression, unspecified; I10 Essential (primary) hypertension; E87.6 Hypokalemia; Z87.891 Personal history of nicotine dependence
CPT/HCPCS: 36415; 70450; 76705; 80053; 80307; 82077; 82140; 82948; 82977; 83690; 83735; 85014; 85018; 85025; 85610; 87641; 93005; 96361; 96374; 96375; 96376; 99285; A9270; J2003; J2060; J2405; J2470; J2560; J2704; J3411; J3480; J7030; J7120